=== PATIENT | male | born 1950 | race Caucasian/White ===

== ENCOUNTER 2019-06-22 18:20 | Inpatient (IN) | payer MEDICARE, OTHER ==
[~2019-06-22] VITALS: Ht 175.3 cm; Wt 77.1 kg
--- OUTSIDE RECORDS SUMMARY | 2019-06-22 18:21 | XMS REPORT | Summary of Care ---
Author Author [facility] Organization [facility] Address Unknown Phone Unavailable Encounter HQ Ambrosentr_renetta(FIN) [id number] Date(s): 06/20/19 - 06/20/19 [facility] Outpatient Imaging - [place] [address] [facility] [address] [place], [place] [address] [phone] Discharge Disposition: Home or Self Care Attending Physician: Josse Sigala MD Referring Physician: Josse Sigala MD Vital Signs No data available for this section Problem List No data available for this section Allergies, Adverse Reactions, Alerts No Known Medication Allergies Medications No data available for this section Results No data available for this section Immunizations No data available for this section Procedures No data available for this section Social History Social History Type Response Assessment and Plan No data available for this section
--- OUTSIDE RECORDS SUMMARY | 2019-06-22 18:21 | XMS REPORT | Continuity of Care Document ---
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 Role Phone [employer] Unavailable Un available Problems Problem Status Onset Date Classification Date Reported Comments Source F17.200 - NICOTINE DEPENDENCE, UNSPECIFI Active 07/09/2018 [facility] Medications No Data Provided for This Section Allergies, Adverse Reactions, Alerts Substance Category Reaction Severity Reaction type Status Date Reported Comments Source No Known Medication Allergies Assertion Drug aller gy [facility] [place] Immunizations No Data Provided for This Section Results No Data Provided for This Section Pathology Reports No Data Provided for This Section Diagnostic Reports Report Value Date Source Abdomen complete US EXAM: US A BDOMEN COMPLETE DATE: 06/20/2019 14:47 CDT INDICATION: - Nausea. Elevated liver function tests. No complaints of abdominal pain. ADDITIONAL INFORMATION: None. COMPARISON: 07/13/2005. TECHNIQUE: Multiplanar grayscale and color Doppler ultrasound images of the abdomen. FINDINGS: Liver: Craniocaudal length: 17.0 cm. Borderline enlarged. Echogenicity: Normal. Surface nodularity: None Mass (size and location): None. Portal vein: 11 mm with hepatopetal flow. Bile ducts: Common bile duct diameter: 11 mm in maximal diameter along its visualized course with no constricting or obstructing lesion detected. The duct can be followed to the level of the superior pancreatic head isn't obscured. Intrahepatic ducts: Intrahepatic biliary ductal dilatation is seen, especially in the left hepatic lobe, moderate in degree. Gallbladder: Gallstones: None. Gallbladder sludge: Moderate to large amount of hypoechoic sludge is seen within the gallbladder lumen. Gallbladder wall: 2.3 mm. Normal. Pericholecystic fluid: None. Sonographic Rangel sign: Absent. Pancreas: No abnormalities of the visualized portions of the pancreas are demonstrated. Portions of the pancreas, including portions of the pancreatic head, are obscured by overlying bowel gas. Spleen: Craniocaudal length: 10.8 cm. Normal. Mass or focal lesion (size and location): None. Right kidney: Size: 11.3 x 4.8 x 5.9 cm. Normal. Hydronephrosis: None. Echogenicity: Normal. Mass/Stone/Cyst (size and location): A simple anechoic 1.5 x 2.2 x 1.8 cm avascular cyst is seen in the peripelvic region of the mid medial right kidney. A second adjacent simple peripelvic cyst is present measuring 0.9 x 1.4 x 1.3 seen Left kidney: Size: 10.9 x 3.7 x 5.2 cm. Normal. Hydronephrosis: None. Echogenicity: Normal. Mass/Stone/Cyst (size and location): A simple anechoic avascular thin-walled peripelvic cyst is seen in the left mid kidney measuring 1.7 x 2.3 x 1.8 cm. Abdominal aorta and IVC: Visualized portions are normal. Ascites: None Pleural Effusions: None IMPRESSION: 1. Dilated common bile duct along with i ntrahepatic biliary ductal dilatation, especially in the left hepatic lobe, concerning for constricting or obstructing process in the nonvisualized portion of the distal common bile duct. MRI of the abdomen with and without contrast along with MRCP should be considered for further evaluation. 2. Echogenic sludge versus sludge ball w ithin the gallbladder lumen. No cholelithiasis is seen. 3. Borderline hepatomegaly with mild dif fuse increased echogenicity, nonspecific findings most commonly caused by fatty infiltration (steatosis) of the liver. This finding has improved from the prior ultrasound exam. 4. Simple bilateral peripelvic renal cys ts. Findings were discussed with Dr. Ryan by telephone on 06/20/2019 at 1555 hours. 06/20/2019 [facility] Abdomen AP DX Exam: Abdominal x-ray, 1 view(s) Reason for Exam: - abdominal pain Comparison Exam: Ultrasound 07/13/2005 Discussion: No dilated loops of bowel or abnormal air-fluid level patterns. Moderate amount of scattered stool seen within the large bowel. No suspicious calcifications seen overlying the kidneys or expected course of the ureters. The right hemidiaphragm is elevated in comparison to the left. This is a nonspecific finding. Surgical changes seen within the lumbar spine. Impression: 1. Nonobstructive bowel gas pattern. 09/11/2018 [facility] [place] Ext Lower Venous Doppler Bilat US EXAM: US BILATERAL LOWER EXTREMITY VENOUS DOPPLER DATE: 07/19/2018 13:54 CDT INDICATION: - R60.9 Edema, unspecified ADDITIONAL INFORMATION: None. COMPARISON: None. TECHNIQUE: Multiplanar grayscale, color Doppler and spectral Doppler ultrasound images of the bilateral lower extremity veins. FINDINGS: Right Thigh Veins: Common Femoral: Patent. Femoral (SFV): Patent. Popliteal: Patent. Proximal Greater Saphenous: Patent. Deep Femoral Veins: Patent. Right Calf Veins: Paired Peroneal: Patent. Posterior Tibial Calf: Patent. Left Thigh Veins: Common Femoral: Patent. Femoral (SFV): Patent. Popliteal: Patent. Proximal Greater Saphenous: Patent. Deep Femoral Veins: Patent. Left Calf Veins: Paired Peroneal: Patent. Posterior Tibial Calf: Patent. Reflux is noted in the left mid superficial femoral vein. Venous reflux is also noted in the right common femoral and proximal superficial femoral veins. IMPRESSION: 1. No sonographic evidence of lower extr emity DVT. 2. Bilateral venous insufficiency is dem onstrated by reflux. 07/19/2018 [facility] Chest 2 views DX EXAM: XR CHES T 2 VIEWS DATE: 07/12/2018 8:06 CDT INDICATION: - COPD COMPARISON: Two-view chest x-ray July 28, 2006 TECHNIQUE: PA and lateral chest radiographs FINDINGS: Lines, tubes and hardware: None. Lungs and pleura: No pulmonary or pleural based abnormality is identified. Pulmonary vascularity is normal. Heart and mediastinum: The heart size is normal for technique. The mediastinal contours are normal. Bones: No acute bony abnormality is identified. IMPRESSION: No acute cardiopulmonary abnormality. 07/12/2018 [facility] CT Low Dose Lung Screening Juan Jose dy: CT Low Dose Lung Screening Age: 68 years y/o Male Clinical Indication: F17.210 Nicotine dependence, cigarettes, uncomplicated - Hx of smoking one pack per day for 51 years. Comparison: None HISTORY: Asymptomatic patient meeting NCCN high-risk criteria for lung screening. Patient is currently a smoker. There is a 51 pack-year history of smoking. Exam: Baseline. TECHNIQUE: Noncontrast, volumetric low-dose CT Chest. kVp = 120 mA = 80; CT Dlvol = 2.72 mGy FINDINGS: LUNG NODULES: Detail below:. 1. Right lung, 3 mm solid-- new; sli ce 24 2. R lung, 2 mm solid-- new; slice 4 9 3. R lung, 2 mm solid-- new; slice 5 3 4. R lung, 3 mm solid-- new; slice 1 42 5. Left lung, 2 mm solid-- new; slic e 145 Other Lung Disease: No pleural effusions or pneumothorax. Minimal biapical opacities, likely scarring. Minimal paraseptal emphysema seen in the left apex. Minimal subsegmental atelectasis in the right lower lobe. Aorta: No aneurysm. Mild atherosclerotic changes in the thoracic aorta. Heart / Pericardium: Normal size. No effusions. Within normal limits. Coronary Ca++ / Atherosclerosis: Mild atherosclerosis. Adenopathy: No enlarged intrathoracic lymph nodes are noted. Base of Neck: Very limited evaluation due to postsurgical changes in the cervical spine. Upper Abdomen: No significant findings. OTHER INCIDENTALS: Degenerative changes in the thoracic spine. LUNG-RADS CATEGORY AND IMPRESSION: Lung-Rads Category: Category 2: Negative, benign findings with no evidence of malignancy. Suggest next LDCT in 12 months if age still less than 77 years. Category C -- History of lung cancer: None. Category S -- Other findings requiring urgent evaluation: None. Thank you for choosing the [facility] Lung Screening Program. 07/12/2018 [facility] Consultation Notes No Data Provided for This Section Discharge Summaries No Data Provided for This Section History and Physicals No Data Provided for This Section Vital Signs No Data Provided for This Section Encounters Location Location Details Encounter Type Encounter Number Reason For Visit Attending Provider ADM Date DC Date Status Source [facility] [place] [facility] [id number] 00 Josse Ryan Jr 07/12/2018 07/13/2018 [facility] [place] [facility] [place] [facility] [id number] 01 Josse Ryan Jr 07/19/2018 07/20/2018 [facility] [place] [facility] Out[facility] - [place] [facility] [id number] 02 Josse Ryan Jr 09/11/2018 09/12/2018 [facility] [place] [facility] - [place] [facility] [id number] 04 Josse Ryan Jr 06/20/2019 06/21/2019 [facility] [place] Procedures No Data Provided for This Section Assessment and Plan No Data Provided for This Section Plan of Care No Data Provided for This Section Social History Social History Date Source Social History TypeResponse 06/21/2019 ANGELA Holly No data available for this section 09/12/2018 ANGELA Box Family History No Data Provided for This Section Advance Directives No Data Provided for This Section Functional Status No Data Provided for This Section
--- OUTSIDE RECORDS SUMMARY | 2019-06-22 18:22 | XMS REPORT | Summary of Care ---
Author Author [facility] - [facility] Organization [facility] - [facility] Address Unknown Phone Unavailable Encounter HQ Encntr_alias(FIN) [id number] Date(s): 09/11/18 - 09/11/18 [facility] Outpatient Imaging - [place] [address] [place] [phone] Discharge Disposition: Home or Self Care Attending [...] data available for this section Social History No data available for this section Assessment and Plan No data available for this section
--- OUTSIDE RECORDS SUMMARY | 2019-06-22 18:22 | XMS REPORT | Summary of Care ---
Author Author [facility] Outpatient Imaging - [facility] Organization [facility] Outpatient [facility] - [facility] Address Unknown Phone Unavailable Encounter HQ Ambrosentr_renetta(FIN) [id number] Date(s): 07/19/18 - 07/19/18 [facility] Outpatient Imaging - [place] [address] [address] [facility], [address] [place] [phone] Discharge Disposition: Home or Self Care Attending [...]
--- OUTSIDE RECORDS SUMMARY | 2019-06-22 18:22 | XMS REPORT ---
Author Author [facility] t Organization [facility] Address [address] [place] [address] Phone Unavailable Care Team Providers Care Dog Day Care Attendant Name Role Phone Ricardo Ryan Jr Attphys Esteban Souza Attphys Unavailable Payers Payer Name Policy Type Policy Number Effective Date Expiration Date S ource Problems This patient has no known problems. Allergies, Adverse Reactions, Alerts Allergy Name Allergy Type Status Severity Reaction(s) Onset Date Inacti ve Date Treating Clinician Comments Source No Known Allergies DA Active U 2018-08-28 00:00:00 [facility] No Known Allergies DA Active U 2018-04-26 00:00:00 [facility] No Known Allergies DA Active U 2017-01-03 00:00:[address] [facility] Medications This patient has no known medications. Procedures This patient has no known procedures. Encounters Start Date/Time End Date/Time Encounter Type Admission Type Attendi [facility] Care Department Encounter ID Source 2019-06-20 14:49:00 2019-06-20 23:59:00 Outpatient Josse Pool MHOIB [id number] [facility] Out patient Imaging - [place] 2018-09-11 10:07:00 2018-09-11 23:59:00 Outpatient Josse PoolIP HOIP [id number] [facility] Out patient Imaging - [place] 2018-07-19 13:46:00 2018-07-19 23:59:00 Outpatient Josse Pool OIB [id number] [facility] Out patient Imaging [facility] 2018-07-12 07:29:00 2018-07-12 23:59:00 Outpatient Josse Pool MHOIB OIB [id number] [facility] Out patient Imaging [facility] Results Test Description Test Time Test Comments Results Result Comments Source HGB HCT 2018-08-31 06:50:00 Test Item HEMOGLOBIN (test code = HGB) 11.8 g/dL 12-16 L HEMATOCRIT (test code = HCT) 37.0 % 37-47 N HGB [id number] 05:46:00* Test Item Value Reference Range Interpretation Comments HEMOGLOBIN (test code = HGB) 11.3 g/dL 12-16 L HEMATOCRIT (test code = HCT) 36.2 % 37-47 L - XR SPINE 1 V SPEC [id number] 10:05:00 Patient Name: RIGO MICHELE JR Unit No: [id number] EXAMS: CPT CODE: [id number] XR SPINE 1 V SPEC LEVEL 48024 3 LATERAL INTRAOPERATIVE VIEWS OF THE LUMBAR SPINE Image 1: Surgical markers are at the L1-L2 and S2 levels. The L3-L4 interbody graft is mild position. Image 2: Surgical instrumentation is centered at the L3 level. L2-L4 posterior fusion construct has been removed. Image 3: L2-L4 posterior instrumented fusion is in place with intact hardware. Interbody grafts are well- positioned on lateral view. at 1005 Reported and signed by: Oleg Paredes M.D. CC: Trung Chino M.D. Technologist: MEE DAVID. RT(R) Transcribed D/ (1005) [email or web address] [facility] NAME: RIGO MICHELE JR [address] [facility] [address] PHYS: Trung Ojeda MD : 1950 AGE: 68 SEX: [place], [place] [address] LOC: Y.507 A PHONE #: [phone] EXAM DATE: 08/28/2018 STATUS: ADM IN FAX #: RAD #: D/C DT PAGE 1 Signed Report Patient Name: RIGO MICHELE JR Unit No: [id number] EXAMS: CPT CODE: [id number] XR SPINE 1 V SPEC LEVEL 75315 <Continued> Orig Print D/T: S: 08/29/2018 (1008) [facility] NAME: RIGO MICHELE JR [address] [facility] [address] PHYS: Trung Ojeda MD : 1950 AGE: 68 SEX: M [place], [place] [address] LOC: Y.507 A PHONE #: [phone] EXAM DATE: 08/28/2018 STATUS: ADM IN FAX #: [phone] RAD #: D/C DT PAGE 2 Signed Report - XR SPINE 1 V SPEC [id number] 10:05:00 Patient Name: RIGO MICHELE JR Unit No: [id number] EXAMS: CPT CODE: [id number] XR SPINE 1 V SPEC LEVEL 31516 3 LATERAL INTRAOPERATIVE VIEWS OF THE LUMBAR SPINE Image 1: Surgical markers are at the L1-L2 and S2 levels. The L3-L4 interbody graft is mild position. Image 2: Surgical instrumentation is centered at the L3 level. L2-L4 posterior fusion construct has been removed. Image 3: L2-L4 posterior instrumented fusion is in place with intact hardware. Interbody grafts are well- positioned on lateral view. at 1005 Reported and signed by: Oleg Paredes M.D. CC: Trung Chino M.D. Technologist: MEE DAVID. RT(R) Transcribed D/ (1005) Olegario [facility] NAME: RIGO MICHELE JR [address] [facility] [address] PHYS: Trung Ojeda MD : 1950 AGE: 68 SEX: [place], [place] [address] LOC: Y.507 A PHONE #: [phone] EXAM DATE: 08/28/2018 STATUS: ADM IN FAX #: RAD #: D/C DT PAGE 1 Signed Report Patient Name: RIGO MICHELE JR Unit No: [id number] EXAMS: CPT CODE: [id number] XR SPINE 1 V SPEC LEVEL 75114 <Continued> Orig Print D/T: S: 08/29/2018 (1008) [facility] NAME: RIGO MICHELE JR [address] [facility] [address] PHYS: Trung Ojeda MD : 1950 AGE: 68 SEX: [place], [place] [address] LOC: Y.507 A PHONE #: [phone] EXAM DATE: 08/28/2018 STATUS: ADM IN FAX #: [phone] RAD #: D/C DT PAGE 2 Signed Report - XR SPINE 1 V SPEC [id number] 10:05:00 Patient Name: RIGO MICHELE JR Unit No: [id number] EXAMS: CPT CODE: [id number] XR SPINE 1 V SPEC LEVEL 30617 3 LATERAL INTRAOPERATIVE VIEWS OF THE LUMBAR SPINE Image 1: Surgical markers are at the L1-L2 and S2 levels. The L3-L4 interbody graft is mild position. Image 2: Surgical instrumentation is centered at the L3 level. L2-L4 posterior fusion construct has been removed. Image 3: L2-L4 posterior instrumented fusion is in place with intact hardware. Interbody grafts are well- positioned on lateral view. at 1005 Reported and signed by: Oleg Paredes M.D. CC: Trung Chino M.D. Technologist: JUSTIN VILLAR RT(R) Transcribed D/ (1005) Olegario [facility] NAME: RIGO MICHELE JR [address] [facility] [address] PHYS: Trung Ojeda MD : 1950 AGE: 68 SEX: [place], [place] [address] LOC: Y.507 A PHONE #: [phone] EXAM DATE: 08/28/2018 STATUS: ADM IN FAX #: [phone] RAD #: D/C DT PAGE 1 Signed Report Patient Name: RIGO MICHELE JR Unit No: [id number] EXAMS: CPT CODE: [id number] XR SPINE 1 V SPEC LEVEL 65614 <Continued> Orig Print D/T: S: 08/29/2018 (1008) [facility] NAME: RIGO MICHELE JR [address] [facility] [address] PHYS: Trung Ojeda MD : 1950 AGE: 68 SEX: [place], [place] [address] LOC: Y.507 A PHONE #: [phone] EXAM DATE: 08/28/2018 STATUS: ADM IN FAX #: [phone] RAD #: D/C DT PAGE 2 Signed Report [id number] 09:23:00* Test Item Value Reference Range Interpretation Comments GLUBED (test code = GLUBED) 169 mg/dL 60-125 H BASIC METABOLIC [id number] 06:28:00* Test Item Value Reference Range Interpretation Comments SODIUM (test code = NA) 139 mmol/L 136-145 N POTASSIUM (test code = K) 4.6 mmol/L 3.5-5.1 N CHLORIDE (test code = CL) 103.0 mmol/L 98-107 N CARBON DIOXIDE (test code = CO2) 26.3 mmol/L 21-32 N GLUCOSE (test code = GLU) 149 mg/dL 70-110 H BLOOD UREA NITROGEN (test code = BUN) 16 mg/dL 7-18 N GLOMERULAR FILTRATION RATE (test code = GFR) 77.2 >60 Unit of measure: mL/min/1.73 d6Ccieropqu Range:Healthy Adults >90 mL/min/1.73 m2 For Chronic Kidney Disease: Stage II Mild Decrease in GFR 60-90 Stage III Moderate Decrease in GFR 30-59 Stage IV Severe Decrease in GFR 15-29 Stage V Kidney Failure <15 CREATININE (test code = CREAT) 0.97 mg/dL 0.55-1.30 N CALCIUM (test code = CA) 7.8 mg/dL 8.2-10.1 L HGB [id number] 05:56:00* Test Item Value Reference Range Interpretation Comments HEMOGLOBIN (test code = HGB) 10.6 g/dL 12-16 L HEMATOCRIT (test code = HCT) 32.8 % 37-47 L PROTHROMBIN [id number] 11:53:00* Test Item Value Reference Range Interpretation Comments PROTHROMBIN TIME PATIENT (test code = PTP) 13.5 secs 10.1-12.5 H INTERNATIONAL NORMAL RATIO (test code = INR) 1.19 <2.0 RECOMMENDED THERAPEUTIC RANGE FOR ORAL ANTICOAGULANTTREATMENT: CONDITION INRProphylaxis of venous thrombosis in 2.0 - 3.0 high-risk medical or surgical patientsTreatment of venous thrombosis 2.0 - 3.0Prevention of embolism 2.0 - 3.0Prevention of recurrent embolism, or 3.0 - 4.5 patients with mechanical prosthetic intravascular valves IS PATIENT ON ANTICOAGULANTS ? YLIST ANTICOAGULANT/ANTI PLT MEDICATION : Aspirin Has Lab been notified if Patient is on Heparin Drip? NOTHROMBOPLASTIN TIME [id number] 11:53:00* Test Item Value Reference Range Interpretation Comments PTT ACTIVATED (test code = APTT) 33.2 secs 24.9-37.0 N IS PATIENT ON ANTICOAGULANTS ? YLIST ANTICOAGULANT/ANTI PLT MEDICATION : Aspirin Has Lab been notified if Patient is on Heparin Drip? NOBASIC METABOLIC PANEL 2018-08-19 11:12:00* Test Item Value Reference Range Interpretation Comments SODIUM (test code = NA) 139 mmol/L 136-145 N POTASSIUM (test code = K) 4.1 mmol/L 3.5-5.1 N CHLORIDE (test code = CL) 103.0 mmol/L 98-107 N CARBON DIOXIDE (test code = CO2) 29.5 mmol/L 21-32 N GLUCOSE (test code = GLU) 88 mg/dL 70-110 N BLOOD UREA NITROGEN (test code = BUN) 11 mg/dL 7-18 N GLOMERULAR FILTRATION RATE (test code = GFR) 73.7 >60 Unit of measure: mL/min/1.73 a6Cbqzidpup Range:Healthy Adults >90 mL/min/1.73 m2 For Chronic Kidney Disease: Stage II Mild Decrease in GFR 60-90 Stage III Moderate Decrease in GFR 30-59 Stage IV Severe Decrease in GFR 15-29 Stage V Kidney Failure <15 CREATININE (test code = CREAT) 1.01 mg/dL 0.55-1.30 N CALCIUM (test code = CA) 8.9 mg/dL 8.2-10.1 N CBC W/AUTO [id number] 10:10:00* Test Item Value Reference Range Interpretation Comments WHITE BLOOD CELL (test code = WBC) 11.1 K/mm3 5.7-10.5 H RED BLOOD CELL (test code = RBC) 4.75 M/mm3 4.2-5.4 N HEMOGLOBIN (test code = HGB) 13.8 g/dL 12-16 N HEMATOCRIT (test code = HCT) 42.7 % 37-47 N MEAN CELL VOLUME (test code = MCV) 90 fL 80-98 N MEAN CELL HGB (test code = MCH) 29.1 pg 27-34 N MEAN CELL HGB CONCENTRATION (test code = MCHC) 32.3 g/dL 30.8-34 .1 N RED CELL DISTRIBUTION WIDTH (test code = RDW) 14.1 % 11-16 N PLT (test code = PLT) 264 K/mm3 130-400 N MEAN PLATELET VOLUME (test code = MPV) 11.8 fL 8.9-12.1 N NEUTROPHIL % (test code = NT%) 74.1 % 45-70 H LYMPHOCYTE % (test code = LY%) 15.4 % 20-40 L MONOCYTE % (test code = MO%) 7.4 % 3-10 N EOSINOPHIL % (test code = EO%) 2.2 % 1-5 N BASOPHIL % (test code = BA%) 0.5 % 0.0-1.1 N NEUTROPHIL # (test code = NT#) 8.20 K/mm3 2.00-7.50 H LYMPHOCYTE # (test code = LY#) 1.70 K/mm3 1.50-4.00 N MONOCYTE # (test code = MO#) 0.82 K/mm3 0.2-0.8 H EOSINOPHIL # (test code = EO#) 0.24 K/mm3 0.04-0.4 N BASOPHIL # (test code = BA#) 0.06 K/mm3 0.02-0.10 N MANUAL DIFF REQUIRED (test code = MDIFF) NO MANUAL DIFF NUCLEATED RED BLOOD CELL (test code = NRBC) 0 % 0-0 N - CT L-SPINE W/O [id number] 08:27:00 Patient Name: RIGO MICHELE JR Unit No: [id number] EXAMS: CPT CODE: [id number] CT L-SPINE W/O CONTRAST 32020 TECHNIQUE: Multiplanar CT images were obtained of the lumbar spine without IV contrast. COMPARISON: MRI dated 05/21/2018. INDICATION: PAIN FINDINGS: Interval postoperative changes of L2-L4 posterior instrumented fusion is demonstrated. The interbody graft at L3-L4 has been extruded along the right lateral recess into the laminectomy site. Approximately 25% of the interbody graft remains at the L3-L4 disc space. Subcutaneous fluid is seen posterior to the surgical site extending from L2 to L5. Alignment: Grade 1 spondylolisthesis of L4-L5. Bone Lesion: No suspicious osseous lesion. Fracture: None present. Paraspinal Soft Tissues: The L3-L4 interbody graft is extruded, as described above. L1/2: Minimal bulge. Mild bilateral facet hypertrophy and ligamentum flavum thickening. There is mild central canal stenosis without significant foraminal narrowing. L2/3: Discectomy and interbody graft. Laminectomy changes are noted with decompression of the central canal. The interbody graft is well-posit ioned. Mild bilateral foraminal stenosis is present. L3/4: Discec shruthi and interbody graft with laminectomy defects. The interbody graft is extruded into the right lateral recess and right laminectomy defect. The g raft extrusion results in right lateral recess stenosis and moderate right foraminal stenosis. There is also mild left foraminal narrowing. L4/5: Grade 1 spondylolisthesis. Partial interbody fusion is present on the right. Laminectomy changes are present with decompression of the central canal. There is left lateral recess stenosis as well as mild left, marked right foraminal stenosis. L5/S1: No significant disc bulge or herniation. Mild bilateral facet hypertrophy. No significant foraminal or central canal stenosis. IMPRESSION: Pos toperative changes of L2-L4 posterior decompression and fusion with extr usion of the right L3-L4 interbody graft posteriorly, described above. [facility] NAME: RIGO MICHELE JR [address] [facility] [address] PHYS: Trung Ojeda MD : 1950 AGE: 68 SEX: [place], [place] [address] LOC: .RAD PHONE #: EXAM DATE: 08/05/2018 STATUS: DEP CLI FAX #: [phone] RAD #: D/C DT PAGE 1 Signed Report (CONTINUED) Patient Name: CLIVE MICHELE JR Unit No: [id number] EXAMS: CPT CODE: [id number] CT L-SPINE W/O CONTRAST 95715 <Continued> at 0827 Reported and signed by: Oleg Paredes M.D. CC: Trung Chino M.D. Technologist: Liset Bravo RT(R),(CT),RVT CTDI: DLP: Trnscrpt: 08/09/2018 (826) tSPENCER [facility] NAME: RIGO MICHELE JR [address] [facility] [address] PHYS: Trung Ojeda MD : 1950 AGE: 68 SEX: M [place] [address] LOC: Y.RAD PHONE #: [phone] EXAM DATE: 08/05/2018 STATUS: DEP CLI FAX #: [phone] RAD #: D/C DT PAGE 2 Signed Report Patient Name: RIGO MICHELE JR Unit No: [id number] EXAMS: CPT CODE: [id number] CT L-SPINE W/O CONTRAST 65259 <Continued> Orig Print D/T: S: 08/09/2018 (0831) [facility] NAME: RIGO MICHELE JR [address] [facility] [address] PHYS: Trung Ojeda MD : 1950 AGE: 68 SEX: [place], [place] [address] LOC: Y.RAD PHONE #: [phone] EXAM DATE: 08/05/2018 STATUS: DEP CLI FAX #: [phone] RAD #: D/C DT PAGE 3 Signed Report - MRI L-SPINE W/O [id number] 08:24:00 Patient Name: RIGO MICHELE JR Unit No: [id number] EXAMS: CPT CODE: [id number] MRI L-SPINE W/O CONT 27027 TECHNIQUE: Multiplanar, multisequence MRI examination performed of the lumbar spine without intravenous contrast material. COMPARISON: MR dated 05/21/2018 FINDINGS: Interval postoperative changes of L2-L4 posterior instrumented fusion is demonstrated. The interbody graft at L3-L4 has been extruded along the right lateral recess into the laminectomy site, better visualized on concurrent CT. Subcutaneous fluid is seen posterior to the surgical site extending from L2 to L5. Alignment: Grade 1 spondylolisthesis of L4-L5. Bone Lesion: No suspicious osseous lesion. Fracture: None present. Paraspinal Soft Tissues: The L3-L4 interbody graft is extruded, as described above. Conus Medullaris: Termination at T12/L1 level. Morphology is normal. L1/2: Disc desiccation with minimal bulge. Mild bilateral facet hypertrophy and ligamentum flavum thickening. There is mild central canal stenosis without significant foraminal narrowing. L2/3: Discectomy and interbody graft. Laminectomy changes are noted with decompression of the central canal. The interbody graft is well-positioned. Mild bilateral foraminal stenosis is present. L3/4: Discectomy and interbody graft with laminectomy defects. The interbody graft is extruded into the right lateral recess and right laminectomy defect. The graft extrusion results in right lateral recess stenosis and moderate right foraminal stenosis. There is also mild left foraminal narrowing. L4/5: Grade 1 spondylolisthesis. Partial interbody fusion is present on the right. Laminectomy changes are noted with decompression of the central canal. There is left lateral recess stenosis as well as mild left, marked right foraminal stenosis. L5/S1: No significant disc bulge or herniation. Mild bilateral facet hypertrophy. No significant foraminal or central canal stenosis. IMPRESSION: Postoperative changes of L2-L4 posterior decompression and fusion with extrusion of the right L3-L4 interbody graft posteriorly, described above. [facility] NAME: RIGO MICHELE JR [address] [facility] [address] PHYS: Trung Ojeda MD : 1950 AGE: 68 SEX: [place], [place] [address] LOC: Y.MRI PHONE #: [phone] EXAM DATE: 08/07/2018 STATUS: DEP CLI FAX #: [phone] RAD #: D/C DT PAGE 1 Signed Report (CONTINUED) Patient Name: RIGO MICHELE JR Unit No: [id number] EXAMS: CPT CODE: [id number] MRI L-SPINE W/O CONT 74182 <Continued> at 0824 Reported and signed by: Oleg Paredes M.D. CC: Trung Chino M.D. Technologist: EMANUEL CLARKE. RT(R) Transcribed D/ (823) Olegario [facility] NAME: RIGO MICHELE JR [address] [facility] [address] PHYS: Trung Ojeda MD : 1950 AGE: 68 SEX: [place] [address] LOC: Y.MRI PHONE #: [phone] EXAM DATE: 08/07/2018 STATUS: DEP CLI FAX #: [phone] RAD #: D/C DT PAGE 2 Signed Report Patient Name: RIGO MICHELE JR Unit No: [id number] EXAMS: CPT CODE: [id number] MRI L-SPINE W/O CONT 21243 <Continued> Orig Print D/T: S: 08/09/2018 (827) [facility] NAME: RIGO MICHELE JR [address] [facility] [address] PHYS: Trung Ojeda MD : 1950 AGE: 68 SEX: [place] [address] LOC: Y.MRI PHONE #: [phone] EXAM DATE: 08/07/2018 STATUS: DEP CLI FAX #: [phone] RAD #: D/C DT PAGE 3 Signed Report HGB [id number] 06:26:00* Test Item Value Reference Range Interpretation Comments HEMOGLOBIN (test code = HGB) 10.4 g/dL 12-16 L HEMATOCRIT (test code = HCT) 31.7 % 37-47 L HGB [id number] 05:46:00* Test Item Value Reference Range Interpretation Comments HEMOGLOBIN (test code = HGB) 10.8 g/dL 12-16 L HEMATOCRIT (test code = HCT) 32.7 % 37-47 L BASIC METABOLIC [id number] 06:45:00* Test Item Value Reference Range Interpretation Comments SODIUM (test code = NA) 138 mmol/L 136-145 N POTASSIUM (test code = K) 4.6 mmol/L 3.5-5.1 N CHLORIDE (test code = CL) 104.0 mmol/L 98-107 N CARBON DIOXIDE (test code = CO2) 24.6 mmol/L 21-32 N GLUCOSE (test code = GLU) 179 mg/dL 70-110 H BLOOD UREA NITROGEN (test code = BUN) 20 mg/dL 7-18 H GLOMERULAR FILTRATION RATE (test code = GFR) 58.7 >60 Unit of measure: mL/min/1.73 [id number] Range:Healthy Adults >90 mL/min/1.73 m2 For Chronic Kidney Disease: Stage II Mild Decrease in GFR 60-90 Stage III Moderate Decrease in GFR 30-59 Stage IV Severe Decrease in GFR 15-29 Stage V Kidney Failure <15 CREATININE (test code = CREAT) 1.23 mg/dL 0.55-1.30 N CALCIUM (test code = CA) 7.7 mg/dL 8.2-10.1 L HGB [id number] 05:44:00* Test Item Value Reference Range Interpretation Comments HEMOGLOBIN (test code = HGB) 11.7 g/dL 12-16 L HEMATOCRIT (test code = HCT) 35.1 % 37-47 L - XR SPINE 1 V SPEC [id number] 16:32:00 Patient Name: RIGO MICHELE JR Unit No: [id number] EXAMS: CPT CODE: [id number] XR SPINE 1 V SPEC LEVEL 35765 INTRAOPERATIVE LATERAL LUMBAR SPINE Film 1. Markers are posterior to L1 and the sacrum. Film 2. A surgical instrument is posterior to L2. Film 3. Anterior and posterior fusion has been performed from L2 to L4. at 1632 Reported and signed by: Trung Hartman MD CC: Trung Chino M.D. Technologist: BRICE LOPEZ (RT.R) Transcribed D/ (057) [facility] NAME: RIGO MICHELE JR [address] [facility] [address] PHYS: Trung Ojeda MD : 1950 AGE: 68 SEX: [place], [place] [address] LOC: Y.998 11 PHONE #: [phone] EXAM DATE: 06/19/2018 STATUS: ADM IN FAX #: [phone] RAD #: D/C DT PAGE 1 Signed Report Patient Name: RIGO MICHELE JR Unit No: [id number] EXAMS: CPT CODE: [id number] XR SPINE 1 V SPEC LEVEL 14435 <Continued> Orig Print D/T: S: 06/19/2018 (061) [facility] NAME: Yovani MICHELE JR [address] [facility] [address] PHYS: Trung Garcia MD : 1950 AGE: 68 SEX: [place], [place] [address] LOC: Y. 998 11 PHONE #: [phone] EXAM DATE: 06/19/2018 STATUS: ADM IN FAX #: [phone] RAD #: D/C DT PAGE 2 Signed Report - XR SPINE 1 V SPEC [id number] 16:32:00 Patient Name: RIGO MICHELE JR Unit No: [id number] EXAMS: CPT CODE: [id number] XR SPINE 1 V SPEC LEVEL 41030 INTRAOPERATIVE LATERAL LUMBAR SPINE Film 1. Markers are posterior to L1 and the sacrum. Film 2. A surgical instrument is posterior to L2. Film 3. Anterior and posterior fusion has been performed from L2 to L4. at 1632 Reported and signed by: Trung Hartman MD CC: Trung Chino M.D. Technologist: BRICE LOPEZ (RT.R) Transcribed D/ (748) [facility] NAME: RIGO MICHELE JR [address] [facility] [address] PHYS: Trung Ojeda MD : 1950 AGE: 68 SEX: [place], [place] [address] LOC: Y.998 11 PHONE #: [phone] EXAM DATE: 06/19/2018 STATUS: ADM IN FAX #: [phone] RAD #: D/C DT PAGE 1 Signed Report Patient Name: RIGO MICHELE JR Unit No: [id number] EXAMS: CPT CODE: [id number] XR SPINE 1 V SPEC LEVEL 17221 <Continued> Orig Print D/T: S: 06/19/2018 (7162) [facility] NAME: Yovani MICHELE JR [address] [facility] [address] PHYS: Trung Garcia MD : 1950 AGE: 68 SEX: [place], [place] [address] LOC: Y. 998 11 PHONE #: [phone] EXAM DATE: 06/19/2018 STATUS: ADM IN FAX #: [phone] RAD #: D/C DT PAGE 2 Signed Report - XR SPINE 1 V SPEC [id number] 16:32:00 Patient Name: RIGO MICHELE JR Unit No: [id number] EXAMS: CPT CODE: [id number] XR SPINE 1 V SPEC LEVEL 51377 INTRAOPERATIVE LATERAL LUMBAR SPINE Film 1. Markers are posterior to L1 and the sacrum. Film 2. A surgical instrument is posterior to L2. Film 3. Anterior and posterior fusion has been performed from L2 to L4. at 1632 Reported and signed by: Trung Hartman MD CC: Trung Chino M.D. Technologist: BRICE LOPEZ (RT.R) Transcribed D/ (8902) [facility] NAME: RIGO MICHELE JR [address] [facility] PHYS: Trung Oejda MD : 1950 AGE: 68 SEX: [place], [place] [address] LOC: Y.998 11 PHONE #: [phone] EXAM DATE: 06/19/2018 STATUS: ADM IN FAX #: [phone] RAD #: D/C DT PAGE 1 Signed Report Patient Name: RIGO MICHELE JR Unit No: [id number] EXAMS: CPT CODE: [id number] XR SPINE 1 V SPEC LEVEL 00247 <Continued> Orig Print D/T: S: 06/19/2018 (1635) [facility] NAME: Yovani MICHELE JR [address] [facility] [address] PHYS: Trung Garcia MD : 1950 AGE: 68 SEX: [place], [place] [address] LOC: Y. 998 11 PHONE #: [phone] EXAM DATE: 06/19/2018 STATUS: ADM IN FAX #: [phone] RAD #: D/C DT PAGE 2 Signed Report ACUTE HEPATITIS [id number] 21:14:00* Test Item Value Reference Range Interpretation Comments AB HEPATITIS A IGM (test code = HAVMAB) NONREACTIVE NONREACTIVE AG HEPATITIS B SURFACE (test code = HBSAG) NONREACTIVE NONREACTIVE AB HEPATITIS B CORE IGM (test code = HBCMAB) NONREACTIVE NONREACTI VE AB HEPATITIS C (test code = HCVAB) NONREACTIVE NONREACTIVE SIGNAL TO CUTOFF (test code = CUTOFF) 0.03 <0.80 N AB HIV 1 21:14:00* Test Item Value Reference Range Interpretation Comments AB HIV 1 2 (test code = ZFX14FH) NONREACTIVE NONREACTIVE Done by [employer] 4th Gen HIV Ag/Ab Combo Screen ACUTE HEPATITIS [id number] 21:14:00* Test Item Value Reference Range Interpretation Comments AB HEPATITIS A IGM (test code = HAVMAB) NONREACTIVE NONREACTIVE AG HEPATITIS B SURFACE (test code = HBSAG) NONREACTIVE NONREACTIVE AB HEPATITIS B CORE IGM (test code = HBCMAB) NONREACTIVE NONREACTI VE AB HEPATITIS C (test code = HCVAB) NONREACTIVE NONREACTIVE SIGNAL TO CUTOFF (test code = CUTOFF) 0.03 <0.80 AB HIV 21:14:00* Test Item Value Reference Range Interpretation Comments AB HIV 1 (test code = HIV1AB) NONREACTIVE NONREACTIVE Done by [employer] 4th Gen HIV Ag/Ab Combo Screen ACUTE HEPATITIS [id number] 20:39:00* Test Item Value Reference Range Interpretation Comments AB HEPATITIS A IGM (test code = HAVMAB) NONREACTIVE AG HEPATITIS B SURFACE (test code = HBSAG) NONREACTIVE NONREACTIVE AB HEPATITIS B CORE IGM (test code = HBCMAB) AB HEPATITIS C (test code = HCVAB) NONREACTIVE SIGNAL TO CUTOFF (test code = CUTOFF) AB HIV 20:39:00* Test Item Value Reference Range Interpretation Comments AB HIV 1 (test code = HIV1AB) NONREACTIVE ACUTE HEPATITIS [id number] 20:38:00* Test Item Value Reference Range Interpretation Comments AB HEPATITIS A IGM (test code = HAVMAB) NONREACTIVE AG HEPATITIS B SURFACE (test code = HBSAG) NONREACTIVE NONREACTIVE AB HEPATITIS B CORE IGM (test code = HBCMAB) NONREACTI VE AB HEPATITIS C (test code = HCVAB) NONREACTIVE SIGNAL TO CUTOFF (test code = CUTOFF) <0.80 AB HIV 1 20:38:00* Test Item Value Reference Range Interpretation Comments AB HIV 1 2 (test code = CRA49EN) NONREACTIVE BASIC METABOLIC [id number] 17:36:00* Test Item Value Reference Range Interpretation Comments SODIUM (test code = NA) 143 mmol/L 136-145 N POTASSIUM (test code = K) 4.0 mmol/L 3.5-5.1 N CHLORIDE (test code = CL) 104.0 mmol/L 98-107 N CARBON DIOXIDE (test code = CO2) 30.4 mmol/L 21-32 N GLUCOSE (test code = GLU) 79 mg/dL 70-110 N BLOOD UREA NITROGEN (test code = BUN) 21 mg/dL 7-18 H GLOMERULAR FILTRATION RATE (test code = GFR) 71.2 >60 Unit of measure: mL/min/1.73 [id number] Range:Healthy Adults >90 mL/min/1.73 m2 For Chronic Kidney Disease: Stage II Mild Decrease in GFR 60-90 Stage III Moderate Decrease in GFR 30-59 Stage IV Severe Decrease in GFR 15-29 Stage V Kidney Failure <15 CREATININE (test code = CREAT) 1.04 mg/dL 0.55-1.30 N CALCIUM (test code = CA) 8.8 mg/dL 8.2-10.1 N PROTHROMBIN [id number] 17:36:00* Test Item Value Reference Range Interpretation Comments PROTHROMBIN TIME PATIENT (test code = PTP) 12.4 secs 10.1-12.5 N INTERNATIONAL NORMAL RATIO (test code = INR) 1.10 <2.0 RECOMMENDED THERAPEUTIC RANGE FOR ORAL ANTICOAGULANTTREATMENT: CONDITION INRProphylaxis of venous thrombosis in 2.0 - 3.0 high-risk medical or surgical patientsTreatment of venous thrombosis 2.0 - 3.0Prevention of embolism 2.0 - 3.0Prevention of recurrent embolism, or 3.0 - 4.5 patients with mechanical prosthetic intravascular valves IS PATIENT ON ANTICOAGULANTS ? ILas Lab been notified if Patient is on Heparin D rip? NOIf Yes, order CBC, OCCULT BLOOD, PT every other day NTHROMBOPLASTIN TIME [id number] 17:36:00* Test Item Value Reference Range Interpretation Comments PTT ACTIVATED (test code = APTT) 30.7 secs 24.9-37.0 N IS PATIENT ON ANTICOAGULANTS ? NHas Lab been notified if Patient is on Heparin D rip? NOIf Yes, order CBC, OCCULT BLOOD, PT every other day NCBC W/AUTO DIFF 2018-05-30 16:57:00* Test Item Value Reference Range Interpretation Comments WHITE BLOOD CELL (test code = WBC) 9.7 K/mm3 5.7-10.5 N RED BLOOD CELL (test code = RBC) 5.35 M/mm3 4.2-5.4 N HEMOGLOBIN (test code = HGB) 16.2 g/dL 12-16 H HEMATOCRIT (test code = HCT) 48.5 % 37-47 H MEAN CELL VOLUME (test code = MCV) 91 fL 80-98 N MEAN CELL HGB (test code = MCH) 30.3 pg 27-34 N MEAN CELL HGB CONCENTRATION (test code = MCHC) 33.4 g/dL 30.8-34 .1 N RED CELL DISTRIBUTION WIDTH (test code = RDW) 14.4 % 11-16 N PLT (test code = PLT) 202 K/mm3 130-400 N MEAN PLATELET VOLUME (test code = MPV) 12.3 fL 8.9-12.1 H NEUTROPHIL % (test code = NT%) 72.8 % 45-70 H LYMPHOCYTE % (test code = LY%) 17.4 % 20-40 L MONOCYTE % (test code = MO%) 7.4 % 3-10 N EOSINOPHIL % (test code = EO%) 1.6 % 1-5 N BASOPHIL % (test code = BA%) 0.5 % 0.0-1.1 N NEUTROPHIL # (test code = NT#) 7.03 K/mm3 2.00-7.50 N LYMPHOCYTE # (test code = LY#) 1.68 K/mm3 1.50-4.00 N MONOCYTE # (test code = MO#) 0.71 K/mm3 0.2-0.8 N EOSINOPHIL # (test code = EO#) 0.15 K/mm3 0.04-0.4 N BASOPHIL # (test code = BA#) 0.05 K/mm3 0.02-0.10 N MANUAL DIFF REQUIRED (test code = MDIFF) NO MANUAL DIFF NUCLEATED RED BLOOD CELL (test code = NRBC) 0 % 0-0 N NM BONE SPECT [id number] 14:34:23CLINICAL INDICATION: M47.816 Spondylosis w/o myelopathy or radiculopathy, lumbar region, M96.1 Postlaminectomy syndrome, not elsewhere classifiedMODALITY: Discovery NM/CT 670TECHNIQUE: 25 mCi Tc 99m MDP are injected IV. After a suitable time delay, whole body imaging images were obtained. SPECT imaging of the lumbar spine is performed with computer and physician-assisted 2-D and 3-D reconstruction. Co-registered low dose limited diagnostic CT images are obtained at the level of SPECT imaging.Computed Tomography Dose Index: 5.44 mGy.FINDINGS:COMPARISON: Fusion CT exam.CT Comments: none.Symmetric bilateral renal function is observed.Mild to moderate periodontal uptake is noted within the maxilla.Mild to moderate bilateral acromioclavicular uptake is most conspicuous. Mild to moderate uptake is noted at the left medial wrist, right elbow. Note is made of a left total knee.SPECT CT fusion imaging of the lumbar spine is reviewed. There is moderate uptake present within marginal osteophytes at the right anterior, lateral aspect of the T12-L1 and L1-L2. The L4-5 disc appears partially fused. There is mild L3-4 facet uptake present. Mature dorsal fusion is demonstrated L4-S1.IMPRESSION:See comments above.PQRS 147: 3570F- XR L-SPINE W/BEND [id number] 10:51:00 Patient Name: RIGO MICHELE JR Unit No: [id number] EXAMS: CPT CODE: [id number] XR L-SPINE W/BEND VIEW 99278 MRI OF THE LUMBAR SP INE: DIAGNOSIS: 1. At L1-2, disc desiccation. No ce ntral canal stenosis. Mild to moderate central canal stenosis. Mild bila teral facet arthropathy. Mild foraminal stenosis. 2. At L2- 3, moderate to marked disc degeneration. There is 2 mm retrolisthesis of L2 on L3. 2 mm disc bulge. Marked sogb-zv-lsmt central canal stenosis se condary to thickening of ligamenta flava moderate bilateral facet arthropa thy. There is compression of the thecal sac and contained nerve roots. B ilateral lateral gutter stenosis. Marked bilateral bony foraminal stenosi s. 3. At L3-4, mild disc degeneration. Patient status post pilar ctomy. There is a marked residual central canal stenosis. Moderate to ma rked bilateral facet arthropathy. Moderate to marked bilateral foraminal stenosis. 4. At L4-5, moderate to marked disc degeneration. There is a grade 1 spondylolisthesis of L4 and L5. Patient status post l aminectomy. There is solid fusion of the facet joints. Moderate residual central canal stenosis. Mild to moderate bilateral bony foraminal stenos is. 5. At L5-S1, no disc bulge or herniation. Mild central canal stenosis. Moderate right facet and mild left facet arthropathy. No foraminal stenosis. COMMENT: COMPARISON: No prior e xams available. Sagittal T1, T2 and STIR and axial T1 and T2-weigh farrukh sequences are obtained of the lumbar spine. The lumbar v ertebrae are within normal limits in signal. The findings are as above. The conus is in the expected location. 7 VIEW LUMBAR SPINE WITH FLEXION AND EXTENSION COMMENT: Moderate degeneration of the L4-5 disc with a grade 1 spondylolisthe sis. There is retrolisthesis of L2 on L3. Anterior bridging osteophytes at the L1-2 level. No abnormal motion seen on flexion or extension. Mode rate levoscoliosis. Pedicles and transverse processes are intact. Modera te degeneration the SI joints. Moderate degeneration of the partially vis ualized hip joints. [facility] NAME: CLIVE MICHELE JR [address] PHYS: Ruben Galvan MD : 1950 AGE: 68 SEX: M [place], [place] [address] LOC: Y.MRI PHONE #: [phone] EXAM DATE: 05/21/2018 STATUS: REG CLI FAX #: [phone] RAD #: D/C DT PAGE 1 Signed Report (CONTINUED) Hussein raynt Name: RIGO MICHELE JR Unit No: [id number] EXAMS: CPT CODE: [id number] XR L-SPINE W/BEND VIEW 90891 <Continued> at 1051 Reported and signed by: Quoc Oliveira MD CC: Ruben Ramirez MD Technologist: Bala Cortez(R) Transcribed D/ (1051) MaryjoGVG [facility] NAME: RIGO MICHELE JR [address] PHYS: Ruben Galvan MD : 1950 AGE: 68 SEX: M [place] [address] LOC: Y.MRI PHONE #: [phone] EXAM DATE: 05/21/2018 STATUS: REG CLI FAX #: [phone] RAD #: D/C DT PAGE 2 Signed Report Patient Name: RIGO MICHELE JR Unit No: [id number] EXAMS: CPT CODE: [id number] XR L-SPINE W/BEND VIEW 04247 <Continued> Orig Print D/T: S: 05/21/2018 (1054) [facility] NAME: RIGO MICHELE JR [address] PHYS: Ruben Galvan MD : 1950 AGE: 68 SEX: M [place] [address] LOC: Y.MRI PHONE #: [phone] EXAM DATE: 05/21/2018 STATUS: REG CLI FAX #: [phone] RAD #: D/C DT PAGE 3 Signed Report - MRI L-SPINE W/O [id number] 10:51:00 Patient Name: RIGO MICHELE JR Unit No: [id number] EXAMS: CPT CODE: [id number] MRI L-SPINE W/O CONT 51450 MRI OF THE LUMBAR SPINE: DIAGNOSIS: 1. At L1-2, disc desiccation. No central canal stenosis. Mild to moderate central canal stenosis. Mild bilateral facet arthropathy. Mild foraminal stenosis. 2. At L2-3, moderate to marked disc degeneration. There is 2 mm retrolisthesis of L2 on L3. 2 mm disc bulge. Marked odmu-gc-bvzo central canal stenosis secondary to thickening of ligamenta flava moderate bilateral facet arthropathy. There is compression of the thecal sac and contained nerve roots. Bilateral lateral gutter stenosis. Marked bilateral bony foraminal stenosis. 3. At L3-4, mild disc degeneration. Patient status post laminectomy. There is a marked residual central canal stenosis. Moderate to marked bilateral facet arthropathy. Moderate to marked bilateral foraminal stenosis. 4. At L4-5, moderate to marked disc degeneration. There is a grade 1 spondylolisthesis of L4 and L5. Patient status post l aminectomy. There is solid fusion of the facet joints. Moderate residual central canal stenosis. Mild to moderate bilateral bony foraminal stenos is. 5. At L5-S1, no disc bulge or herniation. Mild central canal stenosis. Moderate right facet and mild left facet arthropathy. No foraminal stenosis. COMMENT: COMPARISON: No prior e xams available. Sagittal T1, T2 and STIR and axial T1 and T2-weigh farrukh sequences are obtained of the lumbar spine. The lumbar v ertebrae are within normal limits in signal. The findings are as above. The conus is in the expected location. 7 VIEW LUMBAR SPINE WITH FLEXION AND EXTENSION COMMENT: Moderate degeneration of the L4-5 disc with a grade 1 spondylolisthe sis. There is retrolisthesis of L2 on L3. Anterior bridging osteophytes at the L1-2 level. No abnormal motion seen on flexion or extension. Mode rate levoscoliosis. Pedicles and transverse processes are intact. Modera te degeneration the SI joints. Moderate degeneration of the partially vis ualized hip joints. [facility] NAME: CLIVE MICHELE JR [address] PHYS: Ruben Galvan MD : 1950 AGE: 68 SEX: M [place], [place] [address] LOC: Y.MRI PHONE #: [phone] EXAM DATE: 05/21/2018 STATUS: REG CLI FAX #: [phone] RAD #: D/C DT PAGE 1 Signed Report (CONTINUED) Hussein raynt Name: RIGO MICHELE JR Unit No: [id number] EXAMS: CPT CODE: [id number] MRI L-SPINE W/O CONT 90422 <Continued> at 1051 Reported and signed by: Quoc Oliveira MD CC: Ruben Ramirez MD Technologist: Bala Cortez(R) Transcribed D/ (1051) MaryjoGVG [facility] NAME: RIGO MICHELE JR [address] PHYS: Ruben Galvan MD : 1950 AGE: 68 SEX: M [place] [address] LOC: Y.MRI PHONE #: [phone] EXAM DATE: 05/21/2018 STATUS: REG CLI FAX #: [phone] RAD #: D/C DT PAGE 2 Signed Report Patient Name: RIGO MICHELE JR Unit No: [id number] EXAMS: CPT CODE: [id number] MRI L-SPINE W/O CONT 46182 <Continued> Orig Print D/T: S: 05/21/2018 (1054) [facility] NAME: RIGO MICHELE JR [address] PHYS: Ruben Galvan MD : 1950 AGE: 68 SEX: M [place] [address] LOC: Y.MRI PHONE #: [phone] EXAM DATE: 05/21/2018 STATUS: REG CLI FAX #: [phone] RAD #: D/C DT PAGE 3 Signed Report - XR FLUORO FOR SPINE [id number] 09:37:00 Patient Name: RIGO MICHELE JR Unit No: [id number] EXAMS: CPT CODE: [id number] XR FLUORO FOR SPINE INJ 53206 LUMBAR FACET AND EPIRADICULAR INJECTIONS REFERRAL PHYSICIAN: None PREOPERATIVE DIAGNOSIS: Lumbar Radiculitis POSTOPERATIVE DIAGNOSIS: Multilevel lumbar disc degeneration with facet arthropathy and left lower extremity radicular pain PROCEDURES PERFORMED: 1. Fluoroscopically guided needle localization of the left L2 and left L3 spinal nerves with transforaminal epidurograms and epidural injection of local anesthetic and steroid. 2. Fluoroscopically guided needle localization of the left L1-2, left L2-3 and left L3-4 facets with arthrograms and diagnostic injection of local anesthetic and steroid. FINDINGS: All facet showed marked capsular degeneration moderate joint space widening at L2-3. Asp iration was negative. Provocation was negative. Anesthetic response was po sitive with the patient noting relief of his back pain. The left L2 and L3 transforaminal epidurogram showed flow through the foramen with obstructi ve proximal flow in the left L2-3 lateral recess. Provocation was negative . Anesthetic response was positive with the patient noting relief of his l eft lower extremity pain. Preinjection VAS 5/10. Postinjection VAS 0/10. Steroid response pending follow-up. ESTIMATED BLOOD LOSS: Minimal ANESTHESIA: TIVA COMPLICATIONS: None DETAILS OF PROCEDURE: After obtaining stable vital signs, inform ed consent and IV access, with no contraindications, the patient was taken to the operating room and placed in a prone position with all extremities padded and appropriate monitors placed. The patient was sterilely prepped and draped over the lumbosacral spine. Using fluoroscopic visualization the insertion sites were marked for a paravertebral approaches and us ing standard technique, a 25 gauge needle was advanced into each facet elia int and a 25 gauge needle was advanced to the base of each pedicle without paresthesias. Aspiration was negative. Isovue-300 contrast 0.2 mL was inj ected incrementally with frequent negative aspirations to produce the arth rograms and epidurograms. There were no signs of intravascular or intrathe wayne uptake. Bupivicaine 0.75% 0.25 mL with lidocaine 4% 0.5 mL and triamc inolone 10 mg was injected at each facet, while bupivicaine 0.75% 0.25 ml with Lidocaine 4% 0.5 ml and Decadron 8 mg was then incrementally inject ed with frequent negative aspirations at each pedicle. Again, there were no signs of intravascular or intrathecal uptake. The patient's vital signs remained stable. The needles were removed and the patient was taken to the PACU in good condition. [facility] NAME: RIGO MICHELE [address] PHYS: Ruben Galvan MD [place] [address] : 1950 AGE: 68 SEX: M LOC: [place] PHONE #: [phone] EXAM DATE : 04/26/2018 STATUS: [facility] FAX #: [phone] RAD #: D/C DT PAGE 1 Signed Report (CONTINUED) Patient Name: RIGO MICHELE JR Unit No: [id number] EXAMS: CPT CODE: [id number] XR FLUORO FOR SPINE INJ 20238 < Continued> at 0937 Reported and signed by: Ruben Ramirez M.D. CC: Ruben Ramirez MD Technologist: FELICITA MELENDEZ(R) Transcribed D/ (0937) [facility]: RIGO MICHELE [address] PHYS: Ruben Galvan MD [place] [address] : 1950 AGE: 68 SEX: M LOC: [place] PHONE #: [phone] EXAM DATE: 04/26/2018 STATUS: [facility] FAX #: [phone] RAD #: D/C DT PAGE 2 Signed Report Patient Name: RIGO MICHELE JR Unit No: [id number] EXAMS: CPT CODE: [id number] XR FLUORO FOR SPINE INJ 04015 <Continued> Orig Print D/T: S: 04/28/2018 (0940) [facility] NAME: RIGO MICHELE JR [address] PHYS: Ruben Galvan MD [place], [place] [address] : 1950 AGE: 68 SEX: M LOC: [place] PHONE #: [phone] EXAM DATE: 04/26/2018 STATUS: [facility] FAX #: [phone] RAD #: D/C DT PAGE 3 Signed Report NM BONE SPECT SCAN CLINICAL INDICATION: dx: m51.36, m51.16, m96.1, lumbarspine abnormality, chron ic lower back and left knee pain, left ankle and left wrist fx beforeMODALITY: Pansieve dual head gamma cameraTECHNIQUE: 25 mCi Tc 99m MDP are injected IV . After a suitable time delay, whole body imaging images were obtained. SPECT im aging of the lumbar spine is performed with computer and physician-assisted 2-D and 3-D reconstruction.FINDINGS:COMPARISON: Lumbar spine performed 12/21/2016. Five lumbar type vertebra are present. Mature dorsal fusion is noted at the L4-5 level. There appears to be bony union at the anterior L4-5 disc level as well. Approximate 4.0 mm retrolisthesis of L2 is noted in the neutral position. This a ppears stable in flexion and extension. Anterior osteophytes are noted at L1-2, L2-3, L3-4. Wide dorsal laminectomy has been accomplished L3-L4.Symmetric bilate ral renal function is observed.Mild to moderate periodontal uptake is present wi thin the maxilla and mandible. Mild to moderate symmetric uptake is seen at the acromioclavicular joints bilaterally, left medial wrist. Mild glenohumeral and s ternoclavicular joint uptake is seen. Mild bilateral hip uptake is present. Note is made of a left total knee.SPECT imaging of the lumbar spine is reviewed. Mild to moderate activity is noted at the L2-3 intervertebral disc left anterior. M ild to moderate localization is seen at the right lateral T11-T12 and T10-T11 i ntervertebral disc margins. Mild to moderate uptake is noted at the left L2-3 fa cet articulation. There is low-level activity corresponding to the fusion mass a t L4-5.IMPRESSION:See comments above.PQRS 147: 3570FMRI LUMBAR WO/WCLINICAL INDICATION: M51.36 Other intervertebral disc degeneration, lumbar usrkiyA55.1 Postlaminectomy syndrome, not elsewhere dywubfxeaiY96.16MODALITY: [employer] [place] 1.2 [place] Open MRI TECHNIQUE: Multiplanar multi sequence MRI examination of the lumbar spine was performed prior to and following intravenous administration of 10 ml gadavist gadolinium contrast.IMPRESSION:1. 2 mm retrolisthesis of L2 on L3 with superimposed 5 mm posterior disc extrusion, ecce ntric to the left, with caudal migration of disc material. Severe central canal stenosis is seen at this level.2. 3.5 mm broad-based posterior protrusion with spondylotic component at the L3-L4 level. Moderate circumferential central canal stenosis is seen at this level.3. Status post laminectomy and posterior osseous fusion at the L4-L5 level. 3 mm spondylolisthesis of L4 on L5 is evident.4. 1 mm broad-based posterior protrusion at the L1-L2 level.5. Multilevel bilateral lumbar neural foraminal stenosis and facet arthrosis, detailed at specific leve ls below.6. Mild lumbar levoscoliosis.FINDINGS:COMPARISON: noneGeneral observ ations: Mild lumbar levoscoliosis is present. Moderate multilevel anterior spond ylosis is present. There is slight retrolisthesis of L2 on L3 and slight spondyl olisthesis of L4 on L5. The L4-L5 laminectomy and posterior fusion is evident. M odic type 1 discogenic signal changes are present at the L2-L3 level. The L2-L5 intervertebral discs are mildly diminished in height and moderately desiccated. Remaining lumbar intervertebral discs are mildly desiccated without loss of heig ht. Conus medullaris terminates at the T12-L1 level.FINDINGS AT SPECIFIC LEVELS: L5-S1: Significant disc bulge or protrusion is not seen. Central canal is patent . Bilateral neural foramina are patent. Mild to moderate bilateral facet arthrop athy is seen.L4-L5: Status post laminectomy and posterior fusion. 3 mm spondylol isthesis of L4 on L5 is evident, without superimposed protrusion. Central canal is patent. Mild bilateral neural foraminal stenosis is evident.L3-L4: 3.5 mm bro ad-based posterior protrusion with spondylotic component moderately effaces the anterior aspect of thecal sac. Moderate to marked bilateral hypertrophic facet a rthrosis is present. Moderate circumferential central canal stenosis is present. The thecal sac measures 7.5 mm in anteroposterior dimension at the midline. Mod erate right and mild left neural foraminal stenosis is evident.L2-L3: 2 mm retro listhesis of L2 on L3 is evident, with superimposed posterior disc extrusion, ec centric to the left, measuring 5 mm in anteroposterior dimension with 8 mm cauda l migration of disc material. This moderately effaces the anterior aspect of the wayne sac. Extruded disc material is present within the left lateral recess contac ting the descending left L3 nerve root. Severe circumferential central canal lilia nosis is present. The thecal sac measures 6 mm in anteroposterior dimension at t he midline. Moderate right and moderate to severe left neural foraminal stenosis is evident. Moderate bilateral facet arthropathy is seen periL1-L2: 1 mm broad- based posterior protrusion is evident. Central canal is patent. Bilateral neural foramina are patent. Mild bilateral facet arthropathy is seen.CR - XRAY SPINE, LUMBOSACRAL: COMPLETE W/BENDING, MIN 6 VIEWSCLINICAL INDICATION: M51.36 Other intervertebral disc degeneration, lumbar regionFINDINGS:COMPARISON: None.Seven views of lumbar spine were obtained.Five ihk-ioc-vemvysy lumbar-type vertebral bodies are evident. Mild lumbar levoscoliosis is present. Moderate multilevel anterior spondylosis is present. Moderate multilevel bilateral lumbar facet arthropathy is seen. Bilateral intertransverse osseous fusion is evident at the L4-L5 level. There is approximately 2-3 mm spondylolisthesis of L4 on L5, and 2 mm retrolisthesis of L2 on L3. No dynamic instability is appreciable on flexion/extension views. IMPRESSION:1. Moderate multilevel lumbar spondylosis and facet arthrosis.2. Status post bilateral osseous intertransverse fusion at the L4-L5 level.3. Slight spondylolisthesis of L4-5 and retrolisthesis of L3 on L4, without dynamic instability on flexion/extension.4. Mild lumbar levoscoliosis.
--- OUTSIDE RECORDS SUMMARY | 2019-06-22 18:22 | XMS REPORT | Summary of Care ---
Author Author [facility] Organization [facility] Address Unknown Phone Unavailable Encounter HQ Zabrina_renetta(FIN) [id number] Date(s): 07/12/18 - 07/12/18 [facility] Outpatient Imaging [facility] [id number] [place] [address], [address] [place] [phone] Discharge Disposition: Home or Self Care Attending [...]
[2019-06-22] MEDS ORDERED: ATORVASTATIN CA20 MG PO (18:28)
[2019-06-22] MEDS ORDERED: ASPIRIN81 MG PO (18:28)
[2019-06-22] MEDS ORDERED: APRISO0.375 GM PO (18:28)
[2019-06-22] MEDS ORDERED: CIPROFLOXACIN500 MG PO (18:28)
[2019-06-22] MEDS ORDERED: ASPIRIN 81 MG CHEW TAB PO ONE (18:30)
--- NOTE | 2019-06-22 18:34 | Emergency Department Note ---
History of Present Illnes History of Present Illness Chief Complaint: Chest Pain History of Present Illness This is a 69 year old male . c/o cp sob on set noon HERE FOR CHEST PAIN SINCE THIS AFTERNOON AROUND 12 WITH SHORTNESS OF BREATH. DENIES HISTORY OF HEART PROBLEMS. ALSO REPORTS NAUSEA. Historian: Patient Arrival Mode: Car Radiation: non-radiation Severity: moderate Onset quality: sudden Duration (how long): hour(s) Timing of current episode: constant Progression: unchanged Context: recent illness, recent surgery, recent immobilization, recent travel, trauma/injury, new medications, hx of DVT/PE, non-compliance w/ medications, other Relieving factors: none Exacerbating factors: none Treatments prior to arrival: aspirin (JOSE AMES NP) Past Medical/Family History Physician Review I have reviewed the patient's past medical and family history. Any updates have been documented here. (JOSE AMES NP) Past Medical History Recent Fever: No Clinical Suspicion of Infectio: No New/Unexplained Change in Ment: No Past Medical History: Hyperlipedemia Other Medical History: CROHNS H PYLORI Past Surgical History: Knee Replacement, Back Surgery, Orthopedic Implants (JOSE AMES NP) Social History Smoking Cessation: Current every day smoker Alcohol Use: None Any Illegal Drug Use: No TB Exposure/Symptoms: No (JOSE AMES NP) Family History Family history of heart diseas: No (JOSE AMES NP) Other Any Pre-Existing Lines (PICC,: No (JOSE AMES NP) Review of Systems Review of Systems Constitutional: no symptoms EENTM: no symptoms Cardiovascular: chest pain Respiratory: other (sob) Gastrointestinal: no symptoms Genitourinary: no symptoms Musculoskeletal: no symptoms Neurological: no symptoms Psychological: no symptoms Endocrine: no symptoms Hematological/Lymphatic: no symptoms Review of other systems All other systems reviewed and negative. (JOSE AMES NP) Physical Exam Related Data Allergies: Coded Allergies: No Known Allergies (Unverified , 06/22/19) Triage Vital Signs Vital Signs Date Time Temp Pulse Resp B/P (MAP) Pulse Ox O2 Delivery O2 Flow Rate FiO2 06/22/19 18:21 98.8 91 16 190/99 98 Vital signs reviewed: Yes (JOSE AMES NP) Physical Exam CONSTITUTIONAL Constitutional: well-developed, well-nourished HENT HENT: normocephalic, atraumatic, oropharynx clear/moist, nose normal EYES Eyes: PERRL, conjunctivae normal, EOM normal NECK Neck: ROM normal PULMONARY Pulmonary: effort normal; breath sounds normal (mildly diminished lower lobes - no cough congestion ) CARDIOVASCULAR Cardiovascular: regular rhythm, heart sounds normal, capillary refill normal, normal rate GASTROINTESTINAL Abdominal: soft, nontender, bowel sounds normal GENITOURINARY Genitourinary: exam deferred SKIN Skin: warm, dry MUSCULOSKELETAL Musculoskeletal: ROM normal NEUROLOGICAL Neurological: alert, oriented x 3, no gross motor or sensory deficits PSYCHOLOGICAL Psychological: mood/affect normal, judgement normal (JOSE AMES NP) Results Laboratory Laboratory Laboratory Tests Test 06/22/19 19:20 06/22/19 18:29 Lactic Acid Level 3.8 mmol/L (0.5-2.0) White Blood Count 14.60 x10e3/uL (4.8-10.8) Red Blood Count 5.20 x10e6/uL (4.3-5.7) Hemoglobin 15.2 g/dL (14.0-18.0) Hematocrit 47.6 % (38.2-49.6) Mean Corpuscular Volume 91.5 fL (81-99) Mean Corpuscular Hemoglobin 29.2 pg (28-32) Mean Corpuscular Hemoglobin Concent 31.9 g/dL (31-35) Red Cell Distribution Width 15.9 % (11.7-14.4) Platelet Count 203 x10e3/uL (140-360) Neutrophils (%) (Auto) 84.3 % (38.7-80.0) Lymphocytes (%) (Auto) 7.8 % (18.0-39.1) Monocytes (%) (Auto) 6.2 % (4.4-11.3) Eosinophils (%) (Auto) 0.9 % (0.0-6.0) Basophils (%) (Auto) 0.4 % (0.0-1.0) Neutrophils # (Auto) 12.3 (2.1-6.9) Lymphocytes # (Auto) 1.1 (1.0-3.2) Monocytes # (Auto) 0.9 (0.2-0.8) Eosinophils # (Auto) 0.1 (0.0-0.4) Basophils # (Auto) 0.1 (0.0-0.1) Absolute Immature Granulocyte (auto 0.06 x10e3/uL (0-0.1) Prothrombin Time 12.6 seconds (11.9-14.5) Prothromb Time International Ratio 0.89 Activated Partial Thromboplast Time 27.6 seconds (23.8-35.5) Sodium Level 140 mmol/L (136-145) Potassium Level 3.1 mmol/L (3.5-5.1) Chloride Level 103 mmol/L (98-107) Carbon Dioxide Level 24 mmol/L (22-29) Anion Gap 16.1 mmol/L (8-16) Blood Urea Nitrogen 14 mg/dL (7-26) Creatinine 0.86 mg/dL (0.72-1.25) Estimat Glomerular Filtration Rate > 60 ML/MIN (60-) BUN/Creatinine Ratio 16 (6-25) Glucose Level 121 mg/dL (74-118) Calcium Level 9.7 mg/dL (8.4-10.2) Total Bilirubin 6.2 mg/dL (0.2-1.2) Aspartate Amino Transf (AST/SGOT) 191 IU/L (5-34) Alanine Aminotransferase (ALT/SGPT) 216 IU/L (0-55) Alkaline Phosphatase 594 IU/L (40-150) Creatine Kinase 52 IU/L (30-200) Creatine Kinase MB 0.60 ng/mL (0-5.0) Troponin I < 0.001 ng/mL (0-0.300) B-Type Natriuretic Peptide 34.1 pg/mL (0-100) Total Protein 7.8 g/dL (6.5-8.1) Albumin 3.4 g/dL (3.5-5.0) Globulin 4.4 g/dL (2.3-3.5) Albumin/Globulin Ratio 0.8 (0.8-2.0) Laboratory Tests Test 06/22/19 18:29 White Blood Count 14.60 x10e3/uL (4.8-10.8) Red Blood Count 5.20 x10e6/uL (4.3-5.7) Hemoglobin 15.2 g/dL (14.0-18.0) Hematocrit 47.6 % (38.2-49.6) Mean Corpuscular Volume 91.5 fL (81-99) Mean Corpuscular Hemoglobin 29.2 pg (28-32) Mean Corpuscular Hemoglobin Concent 31.9 g/dL (31-35) Red Cell Distribution Width 15.9 % (11.7-14.4) Platelet Count 203 x10e3/uL (140-360) Neutrophils (%) (Auto) 84.3 % (38.7-80.0) Lymphocytes (%) (Auto) 7.8 % (18.0-39.1) Monocytes (%) (Auto) 6.2 % (4.4-11.3) Eosinophils (%) (Auto) 0.9 % (0.0-6.0) Basophils (%) (Auto) 0.4 % (0.0-1.0) Neutrophils # (Auto) 12.3 (2.1-6.9) Lymphocytes # (Auto) 1.1 (1.0-3.2) Monocytes # (Auto) 0.9 (0.2-0.8) Eosinophils # (Auto) 0.1 (0.0-0.4) Basophils # (Auto) 0.1 (0.0-0.1) Absolute Immature Granulocyte (auto 0.06 x10e3/uL (0-0.1) Prothrombin Time 12.6 seconds (11.9-14.5) Prothromb Time International Ratio 0.89 Activated Partial Thromboplast Time 27.6 seconds (23.8-35.5) Sodium Level 140 mmol/L (136-145) Potassium Level 3.1 mmol/L (3.5-5.1) Chloride Level 103 mmol/L (98-107) Carbon Dioxide Level 24 mmol/L (22-29) Anion Gap 16.1 mmol/L (8-16) Blood Urea Nitrogen 14 mg/dL (7-26) Creatinine 0.86 mg/dL (0.72-1.25) Estimat Glomerular Filtration Rate > 60 ML/MIN (60-) BUN/Creatinine Ratio 16 (6-25) Glucose Level 121 mg/dL (74-118) Calcium Level 9.7 mg/dL (8.4-10.2) Total Bilirubin 6.2 mg/dL (0.2-1.2) Aspartate Amino Transf (AST/SGOT) 191 IU/L (5-34) Alanine Aminotransferase (ALT/SGPT) 216 IU/L (0-55) Alkaline Phosphatase 594 IU/L (40-150) Creatine Kinase 52 IU/L (30-200) Creatine Kinase MB 0.60 ng/mL (0-5.0) Troponin I < 0.001 ng/mL (0-0.300) B-Type Natriuretic Peptide 34.1 pg/mL (0-100) Total Protein 7.8 g/dL (6.5-8.1) Albumin 3.4 g/dL (3.5-5.0) Globulin 4.4 g/dL (2.3-3.5) Albumin/Globulin Ratio 0.8 (0.8-2.0) Laboratory Tests Test 06/22/19 18:29 White Blood Count 14.60 x10e3/uL (4.8-10.8) Red Blood Count 5.20 x10e6/uL (4.3-5.7) Hemoglobin 15.2 g/dL (14.0-18.0) Hematocrit 47.6 % (38.2-49.6) Mean Corpuscular Volume 91.5 fL (81-99) Mean Corpuscular Hemoglobin 29.2 pg (28-32) Mean Corpuscular Hemoglobin Concent 31.9 g/dL (31-35) Red Cell Distribution Width 15.9 % (11.7-14.4) Platelet Count 203 x10e3/uL (140-360) Neutrophils (%) (Auto) 84.3 % (38.7-80.0) Lymphocytes (%) (Auto) 7.8 % (18.0-39.1) Monocytes (%) (Auto) 6.2 % (4.4-11.3) Eosinophils (%) (Auto) 0.9 % (0.0-6.0) Basophils (%) (Auto) 0.4 % (0.0-1.0) Neutrophils # (Auto) 12.3 (2.1-6.9) Lymphocytes # (Auto) 1.1 (1.0-3.2) Monocytes # (Auto) 0.9 (0.2-0.8) Eosinophils # (Auto) 0.1 (0.0-0.4) Basophils # (Auto) 0.1 (0.0-0.1) Absolute Immature Granulocyte (auto 0.06 x10e3/uL (0-0.1) Prothrombin Time 12.6 seconds (11.9-14.5) Prothromb Time International Ratio 0.89 Activated Partial Thromboplast Time 27.6 seconds (23.8-35.5) Sodium Level 140 mmol/L (136-145) Potassium Level 3.1 mmol/L (3.5-5.1) Chloride Level 103 mmol/L (98-107) Carbon Dioxide Level 24 mmol/L (22-29) Anion Gap 16.1 mmol/L (8-16) Blood Urea Nitrogen 14 mg/dL (7-26) Creatinine 0.86 mg/dL (0.72-1.25) Estimat Glomerular Filtration Rate > 60 ML/MIN (60-) BUN/Creatinine Ratio 16 (6-25) Glucose Level 121 mg/dL (74-118) Calcium Level 9.7 mg/dL (8.4-10.2) Total Bilirubin 6.2 mg/dL (0.2-1.2) Aspartate Amino Transf (AST/SGOT) 191 IU/L (5-34) Alanine Aminotransferase (ALT/SGPT) 216 IU/L (0-55) Alkaline Phosphatase 594 IU/L (40-150) Creatine Kinase 52 IU/L (30-200) Total Protein 7.8 g/dL (6.5-8.1) Albumin 3.4 g/dL (3.5-5.0) Globulin 4.4 g/dL (2.3-3.5) Albumin/Globulin Ratio 0.8 (0.8-2.0) Laboratory Tests Test 06/22/19 18:29 White Blood Count 14.60 x10e3/uL (4.8-10.8) Red Blood Count 5.20 x10e6/uL (4.3-5.7) Hemoglobin 15.2 g/dL (14.0-18.0) Hematocrit 47.6 % (38.2-49.6) Mean Corpuscular Volume 91.5 fL (81-99) Mean Corpuscular Hemoglobin 29.2 pg (28-32) Mean Corpuscular Hemoglobin Concent 31.9 g/dL (31-35) Red Cell Distribution Width 15.9 % (11.7-14.4) Platelet Count 203 x10e3/uL (140-360) Neutrophils (%) (Auto) 84.3 % (38.7-80.0) Lymphocytes (%) (Auto) 7.8 % (18.0-39.1) Monocytes (%) (Auto) 6.2 % (4.4-11.3) Eosinophils (%) (Auto) 0.9 % (0.0-6.0) Basophils (%) (Auto) 0.4 % (0.0-1.0) Neutrophils # (Auto) 12.3 (2.1-6.9) Lymphocytes # (Auto) 1.1 (1.0-3.2) Monocytes # (Auto) 0.9 (0.2-0.8) Eosinophils # (Auto) 0.1 (0.0-0.4) Basophils # (Auto) 0.1 (0.0-0.1) Absolute Immature Granulocyte (auto 0.06 x10e3/uL (0-0.1) Prothrombin Time 12.6 seconds (11.9-14.5) Prothromb Time International Ratio 0.89 Activated Partial Thromboplast Time 27.6 seconds (23.8-35.5) Lab results reviewed: Yes Laboratory comments noted elevated wbc & lft's / elevated lactic (JOSE AMES NP) Imaging Impressions Procedure: [id number] DX/CHEST SINGLE (PORTABLE) Exam Date: 06/22/19 Exam Time: 1839 REPORT STATUS: Signed EXAMINATION: CHEST SINGLE (PORTABLE) INDICATION: Shortness of breath COMPARISON: None FINDINGS: AP view TUBES and LINES: None. LUNGS: Lungs are well inflated. Lungs are clear. There is no evidence of pneumonia or pulmonary edema. PLEURA: No pleural effusion or pneumothorax. HEART AND MEDIASTINUM: The cardiomediastinal silhouette is unremarkable. BONES AND SOFT TISSUES: No acute osseous lesion. Soft tissues are unremarkable. UPPER ABDOMEN: No free air under the diaphragm. Nonspecific elevation of the right hemidiaphragm. IMPRESSION: No acute thoracic radiographic abnormality. Nonspecific elevation of the right hemidiaphragm. 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 - Dr Granger in eval pt status - lab ekg cxr ordered Dr Granger spoke w/ Dr Ryan will admit and mrcp in am and consult Dr Whitfield discussed pt presentation / plan of care w/ Dr Whitfield 182 SIRS criteria met - hr 96 wbc 14.6 9 blood cultures / lactic / zosyn / ns bolus ordered 1952 lactic 3.8 2nd ns bolus ordered severe sepsis - source abd / elevated lft's prob gb prob- MRCP scan in progress Dr Whitfield in eval pt status discussed lab ekg cxr results plan of care and need for admit care of pt turned over to Dr Whitfield - 2nd lactic pending / MRCP results pe nding (JOSE AMES CONTINUOUS TOWEL ROLLER) Depart Disposition: ADMITTED Last Vital Signs Date Time Temp Pulse Resp B/P (MAP) Pulse Ox O2 Delivery O2 Flow Rate FiO2 06/22/19 18:21 98.8 91 16 190/99 98 (JOSE AMES CONTINUOUS TOWEL ROLLER) Home Meds Reported Medications Aspirin (ASPIRIN) 81 Mg Tab.chew, 81 MG PO DAILY 06/22/19 Mesalamine (APRISO) 0.375 Gm Cap.er.24h, 0.75 MG PO DAILY 06/22/19 Ciprofloxacin Hcl (CIPROFLOXACIN HCL) 500 Mg Tablet, 500 MG PO BID 06/22/19 Discontinued Reported Medications Atorvastatin Calcium (ATORVASTATIN CALCIUM) 20 Mg Tablet, 20 MG PO DAILY 06/22/19 Attestation Provider Attestation The patient's history, exam findings, diagnostics, and a summary of any interventions or procedures was reviewed in detail with our PADMAJA. I personally interviewed and examined the patient, and I have reviewed and agree with the HPI andexam. My personal exam shows [ epigsatric tenderness on exam, pt found to be septic with elevated lft's, wbc 14 heart rate greater than 90 and initial lactic acid of 3.8. second lactic acid after 1 liter ns bolus is 0.9. pt was started on zosyn 3.375 grams iv i spoke with dr warren, dr whitfield, and dr yu.]. I confirm the diagnosis as documented by the PADMAJA. I have reviewed and agree with the care plan articulated in the disposition section. (ASHUTOSH WHITFIELD MD) JOSE AMES NP June 22, 2019 18:34 ASHUTOSH WHITFIELD MD June 22, 2019 21:42
[2019-06-22 18:41] LABS: BASOPHILS # (AUTO) 0.1 (0.0-0.1); BASOPHILS % 0.4 % (0.0-1.0); EOSINOPHILS # (AUTO) 0.1 (0.0-0.4); EOSINOPHILS % 0.9 % (0.0-6.0); HEMATOCRIT 47.6 % (38.2-49.6); HEMOGLOBIN 15.2 g/dL (14.0-18.0); LYMPHOCYTES # (AUTO) 1.1 (1.0-3.2); LYMPHOCYTES % 7.8 % (18.0-39.1); MEAN CORPUSCULAR HEMOGLOBIN 29.2 pg (28-32); MEAN CORPUSCULAR HGB CONC 31.9 g/dL (31-35); MEAN CORPUSCULAR VOLUME 91.5 fL (81-99); MONOCYTES # (AUTO) 0.9 (0.2-0.8); MONOCYTES % 6.2 % (4.4-11.3); NEUTROPHILS # (AUTO) 12.3 (2.1-6.9); NEUTROPHILS % 84.3 % (38.7-80.0); PLATELET COUNT 203 x10e3/uL (140-360); RED CELL DISTRIBUTION WIDTH 15.9 % (11.7-14.4)
[2019-06-22 18:50] LABS: INR 0.89; PROTHROMBIN TIME 12.6 seconds (11.9-14.5)
[2019-06-22 18:51] LABS: PARTIAL THROMBOPLASTIN TIME 27.6 seconds (23.8-35.5)
[2019-06-22 18:57] LABS: ALANINE AMINOTRANSFERASE 216 IU/L (0-55); ALBUMIN 3.4 g/dL (3.5-5.0); ALBUMIN/GLOBULIN RATIO 0.8 (0.8-2.0); ALKALINE PHOSPHATASE 594 IU/L (40-150); ANION GAP 16.1 mmol/L (8-16); BLOOD UREA NITROGEN 14 mg/dL (7-26); BUN/CREATININE RATIO 16 (6-25); CALCIUM 9.7 mg/dL (8.4-10.2); CARBON DIOXIDE 24 mmol/L (22-29); CHLORIDE 103 mmol/L (98-107); CREATINE KINASE 52 IU/L (30-200); CREATININE, SERUM 0.86 mg/dL (0.72-1.25); EST GLOMERULAR FILTRATION RATE > 60 ML/MIN (60-); GLUCOSE 121 mg/dL (74-118); POTASSIUM 3.1 mmol/L (3.5-5.1); SODIUM 140 mmol/L (136-145)
[2019-06-22] MEDS ORDERED: PIPER-TAZ 3.375 GM 50 ML IV ONE (19:00)
[2019-06-22] MEDS ORDERED: SODIUM CHLORIDE 0.9% 1000ML 1,000 ML IV STA ×2 (19:08→19:52)
[2019-06-22] MEDS ORDERED: ONDANSETRON HCL INJ 2MG/ML 2ML 2 MG/ML VIAL IV PRN (19:30)
--- NOTE | 2019-06-22 20:00 | Diagnostic Imaging Report ---
EXAMINATION: CHEST SINGLE (PORTABLE) INDICATION: Shortness of breath COMPARISON: None FINDINGS: AP view TUBES and LINES: None. LUNGS: Lungs are well inflated. Lungs are clear. There is no evidence of pneumonia or pulmonary edema. PLEURA: No pleural effusion or pneumothorax. HEART AND MEDIASTINUM: The cardiomediastinal silhouette is unremarkable. BONES AND SOFT TISSUES: No acute osseous lesion. Soft tissues are unremarkable. UPPER ABDOMEN: No free air under the diaphragm. Nonspecific elevation of the right hemidiaphragm. IMPRESSION: No acute thoracic radiographic abnormality. Nonspecific elevation of the right hemidiaphragm. Signed by: Jerry Mcintosh MD on 06/22/2019 7:56 PM
--- NOTE | 2019-06-22 20:07 | NUR ---
URINE COLLECTED AND SENT OFF TO THE LAB
--- OUTSIDE RECORDS SUMMARY | 2019-06-22 20:12 | XMS REPORT | Continuity of Care Document ---
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 06/20/2019 [facility] Abdomen AP DX Exam: Abdominal x-ray, 1 [...] 1. Nonobstructive bowel gas pattern. 09/11/2018 [facility] [place] Ext Lower Venous Doppler Bilat US EXAM: [...] insufficiency is dem onstrated by reflux. 07/19/2018 [facility] Chest 2 views DX EXAM: XR CHES [...] identified. IMPRESSION: No acute cardiopulmonary abnormality. 07/12/2018 [facility] CT Low Dose Lung Screening Juan Jose [...] evaluation: None. Thank you for choosing the [facility] Lung Screening Program. 07/12/2018 [facility] Consultation Notes No Data Provided for This Section Discharge Summaries No Data Provided for This Section History and Physicals No Data Provided for This Section Vital Signs No Data Provided for This Section Encounters Location Location Details Encounter Type Encounter Number Reason For Visit Attending Provider ADM Date DC Date Status Source [facility] [place] [facility] [id number] Josse Ryan Jr 07/12/2018 07/13/2018 [facility] [place] [facility] [place] [facility] [id number] Josse Ryan Jr 07/19/2018 07/20/2018 [facility] [place] [facility] [place] [facility] [id number] Josse Ryan Jr 09/11/2018 09/12/2018 [facility] [place] [facility] [place] [facility] [id number] Josse Ryan Jr 06/20/2019 06/21/2019 [facility] [place] Procedures No Data Provided for This Section [...]
--- OUTSIDE RECORDS SUMMARY | 2019-06-22 20:12 | XMS REPORT ---
Author Author [facility] t Organization [facility] Address [address] [place] [address] Phone Unavailable Care Team Providers Care Stencil Sprayer Name Role Phone Anamika WHITFIELD Attphys Unavailable Ricardo Ryan Jr Attphys Esteban Souza Attphys Unavailable Amanda GLEASON Admphys Unavailable Payers Payer Name Policy Type Policy [...] Known Allergies DA Active U 2017-01-03 00:00:00 [facility] Medications This patient has no known medications. Procedures This patient has no known procedures. Encounters Start Date/Time End Date/Time Encounter Type Admission Type [facility] Care Department Encounter ID Source 2019-06-20 14:49:00 2019-06-20 23:59:00 Outpatient Josse Pool MHOIB MHOIB [id number] [facility] Out patient Imaging - [place] 2018-09-11 10:07:00 2018-09-11 23:59:00 Outpatient Josse Pool MHHOIP MHHOIP [id number] [facility] Out patient Imaging - [place] 2018-07-19 13:46:00 2018-07-19 23:59:00 Outpatient Josse Pool MHOIB MHOIB [id number] [facility] Out patient Imaging - [place] 2018-07-12 07:29:00 2018-07-12 23:59:00 Outpatient Josse Pool MHOIB MHOIB [id number] [facility] Out patient Imaging - [place] Results Test Description Test Time Test Comments Results Result Comments Source CHEST SINGLE (PORTABLE) 2019-06-22 19:56:00 [place] [address] Patient Name: RIGO MICHELE MR #: [id number] : 1950 Age/Sex: 69/M Req #: [id number] Adm Physician: Ordered by: JOSE AMES NP Report #: [id number] Location: ER Room/Bed: Procedure: [id number] DX/CHEST SINGLE (PORTABLE) Exam Date: 06/22/19 Exam Time: 1840 REPORT STATUS: Signed EXAMINATION: CHEST SINGLE (PORTABLE) INDICATION: Shortness of breath COMPARISON: None FINDINGS: AP view TUBES and LINES: None. LUNGS: Lungs are well inflated. Lungs are clear. There is no evidence of pneumonia or pulmonary edema. PLEURA: No pleural effusion or pneumothorax. HEART AND MEDIASTINUM: The cardiomediastinal silhouette is unremarkable. BONES AND SOFT TISSUES: No acute osseous lesion. Soft tissues are unremarkable. UPPER ABDOMEN: No free air under the diaphragm. Nonspecific elevation of the right hemidiaphragm. IMPRESSION: No acute thoracic radiographic abnormality. Nonspecific elevation of the right hemidiaphragm. Signed by: Anny Corbett MD on 06/22/2019 7:56 PM Dictated By: ANNY CORBETT MD 55 Transcribed By: CAROLYNE on 06/22/191955 COPY TO: KWAKUJOSE Alfredo ADJUNCT FACULTY HGB HCT 2018-08-31 06:50:00 Test Item HEMOGLOBIN (test code = HGB) 11.8 g/dL 12-16 L HEMATOCRIT (test code = HCT) 37.0 % 37-47 N HGB [id number] 05:46:00* Test Item Value Reference Range Interpretation Comments HEMOGLOBIN (test code = HGB) 11.3 g/dL 12-16 L HEMATOCRIT (test code = HCT) 36.2 % 37-47 L - XR SPINE 1 V SPEC [id number] 10:05:00 Patient Name: RIGO MICHELE JR Unit No: [id number] EXAMS: CPT CODE: [id number] XR SPINE 1 V SPEC LEVEL 10562 3 LATERAL INTRAOPERATIVE VIEWS OF THE LUMBAR [...] Technologist: MEE DAVID. RT(R) Transcribed D/ (1005) tSPENCER [facility] NAME: RIGO MICHELE JR [address] [facility] PHYS: Trung Ojeda MD : 1950 AGE: 68 SEX: M [place], [place] [address] LOC: Y.507 A PHONE #: [phone] EXAM DATE: 08/28/2018 STATUS: ADM IN FAX #: RAD #: D/C DT PAGE 1 Signed Report Patient Name: RIGO MICHELE JR Unit No: [id number] EXAMS: CPT CODE: [id number] XR SPINE 1 V SPEC LEVEL 67338 <Continued> Orig Print D/T: S: 08/29/2018 (1008) [facility] NAME: RIGO MICHELE JR [address] [facility] PHYS: Trung Ojeda MD : 1950 AGE: 68 SEX: M [place], [place] [address] LOC: Y.507 A PHONE #: [phone] EXAM DATE: 08/28/2018 STATUS: ADM IN FAX #: [phone] RAD #: D/C DT PAGE 2 Signed Report - XR SPINE 1 V SPEC [id number] 10:05:00 Patient Name: RIGO MICHELE JR Unit No: [id number] EXAMS: CPT CODE: [id number] XR SPINE 1 V SPEC LEVEL 45055 3 LATERAL INTRAOPERATIVE VIEWS OF THE LUMBAR [...] MEE DAVID. RT(R) Transcribed D/ (1005) Olegario [facility] NAME: RIGO MICHELE JR [address] [facility] PHYS: Trung Ojeda MD : 1950 AGE: 68 SEX: M [place], [place] [address] LOC: Y.507 A PHONE #: [phone] EXAM DATE: 08/28/2018 STATUS: ADM IN FAX #: RAD #: D/C DT PAGE 1 Signed Report Patient Name: RIGO MICHELE JR Unit No: [id number] EXAMS: CPT CODE: [id number] XR SPINE 1 V SPEC LEVEL 68493 <Continued> Orig Print D/T: S: 08/29/2018 (1008) [facility] NAME: RIGO MICHELE JR [address] [facility] PHYS: Trung Ojeda MD : 1950 AGE: 68 SEX: M [place], [place] [address] LOC: Y.507 A PHONE #: [phone] EXAM DATE: 08/28/2018 STATUS: ADM IN FAX #: [phone] RAD #: D/C DT PAGE 2 Signed Report - XR SPINE 1 V SPEC [id number] 10:05:00 Patient Name: RIGO MICHELE JR Unit No: [id number] EXAMS: CPT CODE: [id number] XR SPINE 1 V SPEC LEVEL 27164 3 LATERAL INTRAOPERATIVE VIEWS OF THE LUMBAR [...] Technologist: JUSTIN VILLAR RT(R) Transcribed D/ (1005) tCLAUDEJ [facility] NAME: RIGO MICHELE JR [address] [facility] PHYS: Trung Ojeda MD : 1950 AGE: 68 SEX: M [place], [place] [address] LOC: Y.507 A PHONE #: [phone] EXAM DATE: 08/28/2018 STATUS: ADM IN FAX #: RAD #: D/C DT PAGE 1 Signed Report Patient Name: RIGO MICHELE JR Unit No: [id number] EXAMS: CPT CODE: [id number] XR SPINE 1 V SPEC LEVEL 55481 <Continued> Orig Print D/T: S: 08/29/2018 (1008) [facility] NAME: RIGO MICHELE JR [address] [facility] PHYS: Trung Ojeda MD : 1950 AGE: 68 SEX: M [place], [place] [address] LOC: Y.507 A PHONE #: [phone] EXAM DATE: 08/28/2018 STATUS: ADM IN FAX #: [phone] RAD #: D/C DT PAGE 2 Signed Report [id number] 09:23:00* Test Item Value Reference Range Interpretation Comments GLUBED (test code = GLUBED) 169 mg/dL 60-125 H BASIC METABOLIC [id number] 06:28:00* Test Item Value Reference Range Interpretation [...] GFR) 77.2 >60 Unit of measure: mL/min/1.73 v9Zvdtyytfz Range:Healthy Adults >90 mL/min/1.73 m2 For Chronic Kidney Disease: Stage II Mild Decrease in GFR 60-90 Stage III Moderate Decrease in GFR 30-59 Stage IV Severe Decrease in GFR 15-29 Stage V Kidney Failure <15 CREATININE (test code = CREAT) 0.97 mg/dL 0.55-1.30 N CALCIUM (test code = CA) 7.8 mg/dL 8.2-10.1 L HGB [id number] 05:56:00* Test Item Value Reference Range Interpretation Comments HEMOGLOBIN (test code = HGB) 10.6 g/dL 12-16 L HEMATOCRIT (test code = HCT) 32.8 % 37-47 L PROTHROMBIN [id number] 11:53:00* Test Item Value Reference Range Interpretation [...] Patient is on Heparin Drip? NOTHROMBOPLASTIN TIME [id number] 11:53:00* Test Item Value Reference Range Interpretation [...] GFR) 73.7 >60 Unit of measure: mL/min/1.73 t1Thrqrvszq Range:Healthy Adults >90 mL/min/1.73 m2 For Chronic Kidney Disease: Stage II Mild Decrease in GFR 60-90 Stage III Moderate Decrease in GFR 30-59 Stage IV Severe Decrease in GFR 15-29 Stage V Kidney Failure <15 CREATININE (test code = CREAT) 1.01 mg/dL 0.55-1.30 N CALCIUM (test code = CA) 8.9 mg/dL 8.2-10.1 N CBC W/AUTO [id number] 10:10:00* Test Item Value Reference Range Interpretation [...] % 0-0 N - CT L-SPINE W/O [id number] 08:27:00 Patient Name: RIGO MICHELE Unit No: [id number] EXAMS: CPT CODE: [id number] CT L-SPINE W/O CONTRAST 96151 TECHNIQUE: Multiplanar CT images were obtained of [...] right L3-L4 interbody graft posteriorly, described above. [facility] NAME: RIGO MICHELE [address] PHYS: Trung Ojeda MD : 1950 AGE: 68 SEX: M [place], [place] [address] LOC: Y.RAD PHONE #: EXAM DATE: 08/05/2018 STATUS: DEP CLI FAX #: RAD #: D/C DT PAGE 1 Signed Report (CONTINUED) Patient Name: CLIVE MICHELE JR Unit No: [id number] EXAMS: CPT CODE: [id number] CT L-SPINE W/O CONTRAST 21848 <Continued> at 0827 Reported and signed by: Oleg Paredes M.D. CC: Trung Chino M.D. Technologist: Liset Bravo RT(R),(CT),RVT CTDI: DLP: Trnscrpt: 08/09/2018 (08) Olegario [facility] NAME: RIGO MICHELE JR [address] [facility] PHYS: Trung Ojeda MD : 1950 AGE: 68 SEX: M [place] [address] LOC: Y.RAD PHONE #: [phone] EXAM DATE: 08/05/2018 STATUS: DEP CLI FAX #: [phone] RAD #: D/C DT PAGE 2 Signed Report Patient Name: RIGO MICHELE JR Unit No: [id number] EXAMS: CPT CODE: [id number] CT L-SPINE W/O CONTRAST 12363 <Continued> Orig Print D/T: S: 08/09/2018 (0831) [facility] NAME: RIGO MICHELE JR [address] [facility] PHYS: Trung Ojeda MD : 1950 AGE: 68 SEX: M [place] [address] LOC: Y.RAD PHONE #: [phone] EXAM DATE: 08/05/2018 STATUS: DEP CLI FAX #: [phone] RAD #: D/C DT PAGE 3 Signed Report - MRI L-SPINE W/O [id number] 08:24:00 Patient Name: RIGO MICHELE JR Unit No: [id number] EXAMS: CPT CODE: [id number] MRI L-SPINE W/O CONT 64980 TECHNIQUE: Multiplanar, multisequence MRI examination performed of [...] right L3-L4 interbody graft posteriorly, described above. [facility] NAME: RIGO MICHELE [address] [facility] PHYS: Trung Ojeda MD : 1950 AGE: 68 SEX: [place], [place] [address] LOC: Y.MRI PHONE #: [phone] EXAM DATE: 08/07/2018 STATUS: DEP CLI FAX #: [phone] RAD #: D/C DT PAGE 1 Signed Report (CONTINUED) Patient Name: RIGO MICHELE JR Unit No: [id number] EXAMS: CPT CODE: [id number] MRI L-SPINE W/O CONT 02685 <Continued> at 0824 Reported and signed by: Oleg Paredes M.D. CC: Trung Chino M.D. Technologist: EMANUEL CLARKE. RT(R) Transcribed D/ (823) Olegario [facility] NAME: RIGO MICHELE JR [address] [facility] PHYS: Trung Ojeda MD : 1950 AGE: 68 SEX: M [place] [address] LOC: Y.MRI PHONE #: [phone] EXAM DATE: 08/07/2018 STATUS: DEP CLI FAX #: [phone] RAD #: D/C DT PAGE 2 Signed Report Patient Name: RIGO MICHELE JR Unit No: [id number] EXAMS: CPT CODE: [id number] MRI L-SPINE W/O CONT 64458 <Continued> Orig Print D/T: S: 08/09/2018 (827) [facility] NAME: RIGO MICHELE JR [address] [facility] PHYS: Trung Ojeda MD : 1950 AGE: 68 SEX: M [place] [address] LOC: Y.MRI PHONE #: [phone] EXAM DATE: 08/07/2018 STATUS: DEP CLI FAX #: [phone] RAD #: D/C DT PAGE 3 Signed Report HGB [id number] 06:26:00* Test Item Value Reference Range Interpretation Comments HEMOGLOBIN (test code = HGB) 10.4 g/dL 12-16 L HEMATOCRIT (test code = HCT) 31.7 % 37-47 L HGB [id number] 05:46:00* Test Item Value Reference Range Interpretation Comments HEMOGLOBIN (test code = HGB) 10.8 g/dL 12-16 L HEMATOCRIT (test code = HCT) 32.7 % 37-47 L BASIC METABOLIC [id number] 06:45:00* Test Item Value Reference Range Interpretation [...] GFR) 58.7 >60 Unit of measure: mL/min/1.73 f3Ulhidnxhp Range:Healthy Adults >90 mL/min/1.73 m2 For Chronic Kidney Disease: Stage II Mild Decrease in GFR 60-90 Stage III Moderate Decrease in GFR 30-59 Stage IV Severe Decrease in GFR 15-29 Stage V Kidney Failure <15 CREATININE (test code = CREAT) 1.23 mg/dL 0.55-1.30 N CALCIUM (test code = CA) 7.7 mg/dL 8.2-10.1 L HGB [id number] 05:44:00* Test Item Value Reference Range Interpretation Comments HEMOGLOBIN (test code = HGB) 11.7 g/dL 12-16 L HEMATOCRIT (test code = HCT) 35.1 % 37-47 L - XR SPINE 1 V SPEC [id number] 16:32:00 Patient Name: RIGO MICHELE Unit No: [id number] EXAMS: CPT CODE: [id number] XR SPINE 1 V SPEC LEVEL 97323 INTRAOPERATIVE LATERAL LUMBAR SPINE Film 1. Markers are posterior to L1 and the sacrum. Film 2. A surgical instrument is posterior to L2. Film 3. Anterior and posterior fusion has been performed from L2 to L4. at 1632 Reported and signed by: Trung Hartman MD CC: Trung Chino M.D. Technologist: BRICE LOPEZ (RT.R) Transcribed D/ (5762) Johnny [facility] NAME: RIGO MICHELE JR [address] [facility] PHYS: Trung Ojeda MD : 1950 AGE: 68 SEX: Jennifer [place], [place] [address] LOC: Y.998 11 PHONE #: [phone] EXAM DATE: 06/19/2018 STATUS: ADM IN FAX #: [phone] RAD #: D/C DT PAGE 1 Signed Report Patient Name: RIGO MICHELE JR Unit No: [id number] EXAMS: CPT CODE: [id number] XR SPINE 1 V SPEC LEVEL 20457 <Continued> Orig Print D/T: S: 06/19/2018 (9883) [facility] NAME: Yovani MICHELE JR [address] [facility] PHYS: Trung Garcia MD : 1950 AGE: 68 SEX: [place], [place] [address] LOC: Y. 998 11 PHONE #: [phone] EXAM DATE: 06/19/2018 STATUS: ADM IN FAX #: [phone] RAD #: D/C DT PAGE 2 Signed Report - XR SPINE 1 V SPEC [id number] 16:32:00 Patient Name: RIGO MICHELE JR Unit No: [id number] EXAMS: CPT CODE: [id number] XR SPINE 1 V SPEC LEVEL 39488 INTRAOPERATIVE LATERAL LUMBAR SPINE Film 1. Markers are posterior to L1 and the sacrum. Film 2. A surgical instrument is posterior to L2. Film 3. Anterior and posterior fusion has been performed from L2 to L4. at 1632 Reported and signed by: Trung Hartman MD CC: Trung Chino M.D. Technologist: BRICE LOPEZ (RT.R) Transcribed D/ (1292) Johnny [facility] NAME: RIGO MICHELE JR [address] [facility] PHYS: Trung Ojeda MD : 1950 AGE: 68 SEX: M [place], [place] [address] LOC: Y.998 11 PHONE #: [phone] EXAM DATE: 06/19/2018 STATUS: ADM IN FAX #: [phone] RAD #: D/C DT PAGE 1 Signed Report Patient Name: RIGO MICHELE JR Unit No: [id number] EXAMS: CPT CODE: [id number] XR SPINE 1 V SPEC LEVEL 08795 <Continued> Orig Print D/T: S: 06/19/2018 (952) [facility] NAME: Yovani MICHELE JR [address] [facility] PHYS: Trung Garcia MD : 1950 AGE: 68 SEX: [place], [place] [address] LOC: Y. PHONE #: [phone] EXAM DATE: 06/19/2018 STATUS: ADM IN FAX #: [phone] RAD #: D/C DT PAGE 2 Signed Report - XR SPINE 1 V SPEC [id number] 16:32:00 Patient Name: RIGO MICHELE JR Unit No: [id number] EXAMS: CPT CODE: [id number] XR SPINE 1 V SPEC LEVEL 50144 INTRAOPERATIVE LATERAL LUMBAR SPINE Film 1. Markers are posterior to L1 and the sacrum. Film 2. A surgical instrument is posterior to L2. Film 3. Anterior and posterior fusion has been performed from L2 to L4. at 1632 Reported and signed by: Trung Hartman MD CC: Trung Chino M.D. Technologist: BRICE LOPEZ (RT.R) Transcribed D/ (5400) Johnny [facility] NAME: RIGO MICHELE JR [address] [facility] PHYS: Trung Ojeda MD : 1950 AGE: 68 SEX: [place], [place] [address] LOC: Y.998 11 PHONE #: [phone] EXAM DATE: 06/19/2018 STATUS: ADM IN FAX #: [phone] RAD #: D/C DT PAGE 1 Signed Report Patient Name: RIGO MICHELE JR Unit No: [id number] EXAMS: CPT CODE: [id number] XR SPINE 1 V SPEC LEVEL 18344 <Continued> Orig Print D/T: S: 06/19/2018 (1635) [facility] NAME: Yovani MICHELE JR [address] [facility] PHYS: Trung Garcia MD : 1950 AGE: 68 SEX: M [place], [place] [address] LOC: Y. 998 11 PHONE #: [phone] EXAM DATE: 06/19/2018 STATUS: ADM IN FAX #: [phone] RAD #: D/C DT PAGE 2 Signed Report ACUTE HEPATITIS [id number] 21:14:00* Test Item Value Reference Range Interpretation [...] = HIV1AB) NONREACTIVE NONREACTIVE Done by [employer] Fanaticall[employer] 4th Gen HIV Ag/Ab Combo Screen ACUTE HEPATITIS [id number] 21:14:00* Test Item Value Reference Range Interpretation [...] AB HIV 1 2 (test code = IUO59RP) NONREACTIVE NONREACTIVE Done by [employer] Fanatic[employer] 4th Gen HIV Ag/Ab Combo Screen ACUTE HEPATITIS [id number] 20:39:00* Test Item Value Reference Range Interpretation [...] (test code = HIV1AB) NONREACTIVE ACUTE HEPATITIS [id number] 20:38:00* Test Item Value Reference Range Interpretation [...] AB HIV 1 2 (test code = CKO04GE) NONREACTIVE BASIC METABOLIC [id number] 17:36:00* Test Item Value Reference Range Interpretation [...] GFR) 71.2 >60 Unit of measure: mL/min/1.73 o1Llymhvxez Range:Healthy Adults >90 mL/min/1.73 m2 For Chronic Kidney Disease: Stage II Mild Decrease in GFR 60-90 Stage III Moderate Decrease in GFR 30-59 Stage IV Severe Decrease in GFR 15-29 Stage V Kidney Failure <15 CREATININE (test code = CREAT) 1.04 mg/dL 0.55-1.30 N CALCIUM (test code = CA) 8.8 mg/dL 8.2-10.1 N PROTHROMBIN [id number] 17:36:00* Test Item Value Reference Range Interpretation [...] intravascular valves IS PATIENT ON ANTICOAGULANTS ? NHas Lab been notified if Patient is on Heparin D rip? NOIf Yes, order CBC, OCCULT BLOOD, PT every other day NTHROMBOPLASTIN TIME [id number] 17:36:00* Test Item Value Reference Range Interpretation Comments PTT ACTIVATED (test code = APTT) 30.7 secs 24.9-37.0 N IS PATIENT ON ANTICOAGULANTS ? NMas Lab been notified if Patient is on [...] 0 % 0-0 N NM BONE SPECT [id number] 14:34:23CLINICAL INDICATION: M47.816 Spondylosis w/o myelopathy or [...] comments above.PQRS 147: 3570F- XR L-SPINE W/BEND [id number] 10:51:00 Patient Name: RIGO MICHELE JR Unit No: [id number] EXAMS: CPT CODE: [id number] XR L-SPINE W/BEND VIEW 79289 MRI OF THE LUMBAR SP INE: DIAGNOSIS: 1. At L1-2, disc desiccation. No ce ntral canal stenosis. Mild to moderate central canal stenosis. Mild bila teral facet arthropathy. Mild foraminal stenosis. 2. At L2- 3, moderate to marked disc degeneration. There is 2 mm retrolisthesis of L2 on L3. 2 mm disc bulge. Marked atpp-tu-jwba central canal stenosis se condary to thickening [...] of the partially vis ualized hip joints. [facility] NAME: CREWS,CLIVE THAKKAR JR [address] [facility] PHYS: Ruben Galvan MD : 1950 AGE: 68 SEX: M [place] [id number] LOC: Y.MRI PHONE #: [phone] EXAM DATE: 05/21/2018 STATUS: REG CLI FAX #: [phone] RAD #: D/C DT PAGE 1 Signed Report (CONTINUED) Hussein raynt Name: RIGO MICHELE JR Unit No: [id number] EXAMS: CPT CODE: [id number] XR L-SPINE W/BEND VIEW 13054 <Continued> at 1051 Reported and signed by: Quoc Oliveira MD CC: Ruben Ramirez MD Technologist: Bala Cortez(R) Transcribed D/ (7342) [facility] NAME: RIGO MICHELE JR [address] [facility] PHYS: Ruben Galvan MD : 1950 AGE: 68 SEX: M [place] [address] LOC: Y.MRI PHONE #: [phone] EXAM DATE: 05/21/2018 STATUS: REG CLI FAX #: [phone] RAD #: D/C DT PAGE 2 Signed Report Patient Name: RIGO MICHELE JR Unit No: [id number] EXAMS: CPT CODE: [id number] XR L-SPINE W/BEND VIEW 83408 <Continued> Orig Print D/T: S: 05/21/2018 (6614) [facility] NAME: RIGO MICHELE JR [address] [facility] PHYS: Ruben Galvan MD : 1950 AGE: 68 SEX: M [place] [id number] LOC: Y.MRI PHONE #: [phone] EXAM DATE: 05/21/2018 STATUS: REG CLI FAX #: [phone] RAD #: D/C DT PAGE 3 Signed Report - MRI L-SPINE W/O [id number] 10:51:00 Patient Name: RIGO MICHELE JR Unit No: [id number] EXAMS: CPT CODE: [id number] MRI L-SPINE W/O CONT 93804 MRI OF THE LUMBAR SPINE: DIAGNOSIS: 1. At L1-2, disc desiccation. No central canal stenosis. Mild to moderate central canal stenosis. Mild bilateral facet arthropathy. Mild foraminal stenosis. 2. At L2-3, moderate to marked disc degeneration. There is 2 mm retrolisthesis of L2 on L3. 2 mm disc bulge. Marked fcoi-tu-rocg central canal stenosis secondary to thickening of [...] of the partially vis ualized hip joints. [facility] NAME: CLIVE MICHELE JR [address] [facility] PHYS: Ruben Galvan MD : 1950 AGE: 68 SEX: M [place] [address] LOC: Y.MRI PHONE #: [phone] EXAM DATE: 05/21/2018 STATUS: REG CLI FAX #: [phone] RAD #: D/C DT PAGE 1 Signed Report (CONTINUED) Hussein corynt Name: RIGO MICHELE JR Unit No: [id number] EXAMS: CPT CODE: [id number] MRI L-SPINE W/O CONT 74216 <Continued> at 1051 Reported and signed by: Quoc Oliveira MD CC: Ruben Ramirez MD Technologist: Bala Cortez(R) Transcribed D/ (6223) [facility] NAME: RIGO MICHELE JR [address] [facility] PHYS: Ruben Galvan MD : 1950 AGE: 68 SEX: M [place] [address] LOC: Y.MRI PHONE #: [phone] EXAM DATE: 05/21/2018 STATUS: REG CLI FAX #: [phone] RAD #: D/C DT PAGE 2 Signed Report Patient Name: RIGO MICHELE JR Unit No: [id number] EXAMS: CPT CODE: [id number] MRI L-SPINE W/O CONT 72016 <Continued> Orig Print D/T: S: 05/21/2018 (8574) [facility] NAME: RIGO MICHELE JR [address] [facility] PHYS: Ruben Galvan MD : 1950 AGE: 68 SEX: M [place] [address] LOC: Y.MRI PHONE #: [phone] EXAM DATE: 05/21/2018 STATUS: REG CLI FAX #: [phone] RAD #: D/C DT PAGE 3 Signed Report - XR FLUORO FOR SPINE [id number] 09:37:00 Patient Name: RIGO MICHELE JR Unit No: [id number] EXAMS: CPT CODE: [id number] XR FLUORO FOR SPINE INJ 91977 LUMBAR FACET AND EPIRADICULAR INJECTIONS REFERRAL PHYSICIAN: [...] taken to the PACU in good condition. [facility] NAME: RIGO MICHELE JR [address] [facility] PHYS: Ruben Galvan MD [place] [address] : 1950 AGE: 68 SEX: M LOC: [place] PHONE #: [phone] EXAM DATE : 04/26/2018 STATUS: [facility] FAX #: [phone] RAD #: D/C DT PAGE 1 Signed Report (CONTINUED) Patient Name: RIGO MICHELE JR Unit No: [id number] EXAMS: CPT CODE: [id number] XR FLUORO FOR SPINE INJ 14865 < Continued> at 0937 Reported and signed by: Ruben Ramirez M.D. CC: Ruben Ramirez MD Technologist: FELICITA MELENDEZ(R) Transcribed D/ (0937) Trena [facility] NAME: RIGO MICHELE JR [address] [facility] PHYS: Ruben Galvan MD [place] [address] : 1950 AGE: 68 SEX: M LOC: [place] PHONE #: [phone] EXAM DATE: 04/26/2018 STATUS: [facility] FAX #: [phone] RAD #: D/C DT PAGE 2 Signed Report Patient Name: RIGO MICHELE JR Unit No: [id number] EXAMS: CPT CODE: [id number] XR FLUORO FOR SPINE INJ 66287 <Continued> Orig Print D/T: S: 04/28/2018 (0940) [facility] NAME: RIGO MICHELE JR [address] [facility] PHYS: Ruben Galvan MD [place] [address] : 1950 AGE: 68 SEX: M LOC: [place] PHONE #: [phone] EXAM DATE: 04/26/2018 STATUS: DEP [facility] FAX #: [phone] RAD #: D/C DT PAGE 3 Signed Report NM BONE SPECT SCAN CLINICAL INDICATION: dx: m51.36, m51.16, m96.1, lumbarspine abnormality, chron ic lower back and left knee pain, left ankle and left wrist fx beforeMODALITY: [employer] dual head gamma cameraTECHNIQUE: 25 mCi Tc [...] INDICATION: M51.36 Other intervertebral disc degeneration, lumbar lpfzdhY99.1 Postlaminectomy syndrome, not elsewhere [id number]: [employer] [place] 1.2 [place] Open MRI TECHNIQUE: [...] None.Seven views of lumbar spine were obtained.Five [id number] lumbar-type vertebral bodies are evident. Mild lumbar [...]
[2019-06-22 20:33] LABS: CLARITY,URINE SL CLOUDY (CLEAR); COLOR,URINE BROWN (YELLOW)
[2019-06-22 20:34] LABS: BILIRUBIN,URINE LARGE (NEGATIVE); KETONES,URINE NEGATIVE (NEGATIVE); LEUKOCYTE ESTERASE ,URINE NEGATIVE (NEGATIVE); NITRITE,URINE NEGATIVE (NEGATIVE); PROTEIN,URINE DIPSTICK 1+ (NEGATIVE)
[2019-06-22 20:39] LABS: RBC,URINE 0-5 /HPF (0-5); WBC,URINE (MAN) 0-5 /HPF (0-5)
[2019-06-22 20:40] LABS: BACTERIA,URINE RARE /HPF; CALCIUM OXALATE CRYSTALS,UR FEW (FEW); EPITHELIAL CELLS,URINE RARE /LPF; MUCUS,URINE FEW (RARE)
[2019-06-22] MEDS: MORPHINE SULFATE 2 MG/ML SYR 1ML IV PRN (20:41)
[2019-06-22 22:00] VITALS: BP 134/75
[2019-06-22] MEDS ORDERED: PIPER-TAZ 3.375 GM / NS 50ML IV SCH (22:00)
--- NOTE | 2019-06-22 22:00 | NUR ---
PATIENT IS A NEW ADMIT THAT ARRIVED VIA STRETCHER. PATIENT HAS BEEN TRANSFERRED INTO THE BED. BED IS IN THE LOWEST POSITION AND CALL LIGHT IS WITHIN REACH. WILL CONTINUE TO MONITOR PATIENT. DENIES PAIN OR DISCOMFORT.
[2019-06-22 22:18] VITALS: BP 134/75
[2019-06-22] MEDS ORDERED: SODIUM CHLORIDE 0.9% 250ML 250 ML ONE (22:51)
[2019-06-22 22:58] VITALS: BP 134/75
[2019-06-22] MEDS: METRONIDAZOLE 500MG/NS 100ML 100 ML IV SCH (23:07)
[2019-06-23] VITALS (7 sets, daily range): BP systolic 99–134; BP diastolic 65–85
[2019-06-23] MEDS: PIPER-TAZ 3.375 GM / NS 50ML IV SCH ×4 (04:05→22:27)
[2019-06-23 05:49] LABS: BASOPHILS # (AUTO) 0.1 (0.0-0.1); BASOPHILS % 0.4 % (0.0-1.0); EOSINOPHILS % 0.4 % (0.0-6.0); HEMATOCRIT 38.9 % (38.2-49.6); HEMOGLOBIN 12.6 g/dL (14.0-18.0); LYMPHOCYTES # (AUTO) 0.9 (1.0-3.2); MEAN CORPUSCULAR HEMOGLOBIN 29.7 pg (28-32); MEAN CORPUSCULAR HGB CONC 32.4 g/dL (31-35); MEAN CORPUSCULAR VOLUME 91.7 fL (81-99); MONOCYTES # (AUTO) 0.6 (0.2-0.8); MONOCYTES % 5.4 % (4.4-11.3); NEUTROPHILS # (AUTO) 9.7 (2.1-6.9); NEUTROPHILS % 85.5 % (38.7-80.0); PLATELET COUNT 157 x10e3/uL (140-360); RED BLOOD COUNT 4.24 x10e6/uL (4.3-5.7); RED CELL DISTRIBUTION WIDTH 15.9 % (11.7-14.4)
[2019-06-23] MEDS: METRONIDAZOLE 500MG/NS 100ML 100 ML IV SCH ×3 (06:11→18:06)
[2019-06-23 06:12] LABS: ALANINE AMINOTRANSFERASE 171 IU/L (0-55); ALBUMIN 2.6 g/dL (3.5-5.0); ALBUMIN/GLOBULIN RATIO 0.8 (0.8-2.0); ALKALINE PHOSPHATASE 403 IU/L (40-150); AMYLASE 59 U/L (25-125); ANION GAP 12.8 mmol/L (8-16); BLOOD UREA NITROGEN 14 mg/dL (7-26); BUN/CREATININE RATIO 18 (6-25); CALCIUM 8.4 mg/dL (8.4-10.2); CARBON DIOXIDE 22 mmol/L (22-29); CHLORIDE 108 mmol/L (98-107); EST GLOMERULAR FILTRATION RATE > 60 ML/MIN (60-); GLUCOSE 123 mg/dL (74-118); LIPASE 67 U/L (8-78); POTASSIUM 3.8 mmol/L (3.5-5.1); SODIUM 139 mmol/L (136-145)
[2019-06-23 06:24] LABS: CREATINE KINASE 77 IU/L (30-200)
--- NOTE | 2019-06-23 06:39 | NUR ---
patient is resting comfortably in the bed. no distress noted. bed is in lowest position.
--- NOTE | 2019-06-23 07:38 | Consultation ---
DATE OF CONSULTATION: 06/23/2019 REFERRING PHYSICIAN: Josse Ryan MD HISTORY OF PRESENT ILLNESS: The patient is a 69-year-old male presents to the emergency room with complaints of severe epigastric abdominal pain. The patient says the pain started yesterday. He has associated nausea. He has had similar pains before, but never this severe. Evaluation in the emergency room revealed jaundice with elevated bilirubin of 6. He was sent for MRCP, results of which are not available at this time. The patient at this time says his pain is nearly gone. PAST MEDICAL HISTORY: Significant for multiple previous back surgeries and neck surgery. He denies any chronic medical problems although chart says he has hyperlipidemia. MEDICATIONS: At home aspirin, Cipro, and mesalamine. ALLERGIES: HE HAS NO KNOWN ALLERGIES. FAMILY HISTORY: Noncontributory. SOCIAL HISTORY: The patient does not smoke cigarettes or drink alcohol. REVIEW OF SYSTEMS: As stated above. He has not had any fever. PHYSICAL EXAMINATION: GENERAL: The patient is awake and alert, in no distress. VITAL SIGNS: At this time are normal. HEENT: Sclera slightly icteric. NECK: No masses. LUNGS: Equal breath sounds are clear bilaterally. CARDIAC: Regular rate and rhythm with no murmur. ABDOMEN: Soft. There was no tenderness, no mass, no organomegaly. EXTREMITIES: No edema. NEUROLOGIC: Grossly intact. LABORATORY DATA: White blood count on arrival was 14.6, but today is 11.4, hemoglobin and hematocrit are normal. Chemistries reveal abnormal liver function tests with elevated bilirubin, which was 6.2 on admission, now 5.7. AST, ALT, and alkaline phosphatase were also elevated while the lipase was normal. ASSESSMENT: A 69-year-old male with epigastric abdominal pain, findings suggestive of biliary colic, possible cholangitis, which is now improved. Plan to review the MRCP. At this point recommend keeping the patient on IV antibiotics has been ordered. There are no signs of peritonitis, no findings that would warrant immediate surgical intervention at this time. Thank you for asking me to see Mr. Hedrick. MD DENYS Farrar/VERITO /[id number]
[2019-06-23] MEDS: DEXTROSE 5%/0.45% SOD CHL 1,000 ML IV SCH (10:35)
[2019-06-23 11:46] LABS: CREATINE KINASE 81 IU/L (30-200)
--- NOTE | 2019-06-23 14:31 | Consultation ---
DATE OF CONSULTATION: Cardiac Consultation REASON FOR CONSULTATION: Cardiac clearance, chest pain. HISTORY OF PRESENT ILLNESS: Mr. Hedrick is a 69-year-old gentleman, who is known to be smoker. The patient was in his usual status of health. He started having shortness of breath, lower retrosternal epigastric discomfort, nausea, and vomiting. He was not feeling well at all. His lab data was consistent with marked elevation of bilirubin and transaminase. Because of this finding and the possible need of the patient's surgery, cardiac consultation is obtained. Cardiac-jackman, the patient denied having any angina, however, his activities are very very much limited. In fact, the patient had back surgery and cervical surgery, and he walks with a walker. There is no orthopnea. There is no paroxysmal nocturnal dyspnea. There is no active cardiovascular system complaint. REVIEW OF SYSTEMS: GENERAL: No fever. No chills. HEENT: No vision problem. No hearing problem. PULMONARY AND CARDIAC: As per above. GI: Nausea, vomiting, abdominal discomfort, and abdominal pain. : No hematuria. No dysuria. MUSCULOSKELETAL: Back pain, knee pain. NEUROLOGIC: Abnormal gait secondary to back problem. HEMATOLOGY: No easy bruising or bleeding. ENDOCRINE: No history of diabetes mellitus. PAST MEDICAL HISTORY: 1. Left knee replacement. 2. Low back surgery. 3. Cervical spine surgery. 4. Heavy smoker. SOCIAL HISTORY: He is a smoker. Social alcohol drinker. 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 . HOME MEDICATIONS: Include mesalamine, aspirin, Lipitor, which was stopped. ALLERGIES: NONE LISTED. FAMILY HISTORY: Both father and mother with hypertensive, but no premature coronary artery disease. All siblings and children are without premature coronary artery disease. PHYSICAL EXAMINATION: GENERAL: Well-built gentleman, in no acute distress. VITAL SIGNS: Height of 5 feet 10 inches, weight 170 pounds, blood pressure 100/60, heart rate of 60, and respiratory rate of 20. HEENT: Jaundice is noted. NECK: No elevation of jugular venous pulsation. No bruit. CHEST: Clear to auscultation and percussion. HEART: PMI 5th left intercostal space. Normal first and second heart sound. ABDOMEN: Soft with good bowel sounds. EXTREMITIES: No cyanosis. No clubbing. No edema. NEUROLOGIC: Nonfocal. LABORATORY DATA: Chest x-ray showed no volume overload. EKG showing normal sinus rhythm, nonspecific ST changes. White blood cell count of 11.3, hemoglobin 12.6, and hematocrit 39%. Electrolytes were normal. ALT and AST are elevated. Bilirubin is elevated. IMPRESSION AND PLAN: 1. Admission with gastrointestinal symptoms and jaundice. 2. Smoker. 3. Possible chronic obstructive pulmonary disease. 4. Very severe advanced degenerative joint disease, status post several surgeries and abnormal gait. 5. Dyspnea on exertion, multifactorial. Cardiac jackman, the patient will be cleared for the surgery if surgery is needed. His cardiac risks are acceptable and the surgery is needed. Regardless, we will leave that decision for the MRCP and further GI workup, which is in progress. From a cardiac point of view, we will get an echocardiogram. We will follow the patient's progression with you. I would like to thank you for your kind referral. MD DUANE Orr/VERITO /[id number]
--- NOTE | 2019-06-23 17:51 | NUR ---
patient up in bed, alert with no distress, Dr Bush had rounds
--- NOTE | 2019-06-23 18:02 | Diagnostic Imaging Report ---
EXAM: Magnetic Resonance Cholangiopancreatography (M.R.C.P.) INDICATION: Elevated bilirubin COMPARISON: None. TECHNIQUE: Multiplanar, multisequence MRCP was performed, with sequences including coronal turbo spin-echo T1-weighted scans, [facility] MRCP scans, coronal spin, coronal MPR 2[facility], [facility] MRCP AYALA. IV Contrast: None Oral Contrast: None Medications: None COMPLICATIONS: None FINDINGS: LOWER THORAX: Unremarkable. HEPATOBILIARY: No focal hepatic lesion. Mild to moderate intrahepatic and extrahepatic biliary ductal dilatation. The common bile duct measures up to 1.5 cm in caliber. There is a 0.9 cm round hypointense lesion at the ampulla of Vater (best seen on series 5 image 38, series 9 image 21). GALLBLADDER: Distended. No wall thickening. No discrete intraluminal stone. No pericholecystic inflammation. SPLEEN: No splenomegaly. PANCREAS: No discrete pancreatic mass lesion is identified. The pancreatic duct is not dilated. ADRENALS: No adrenal nodules KIDNEYS/URETERS: No hydronephrosis. Bilateral parapelvic cysts. GI TRACT: No abnormal distention, wall thickening, or evidence of bowel obstruction. LYMPH NODES: No definite lymphadenopathy. VESSELS: Unremarkable. PERITONEUM / RETROPERITONEUM: No free air or fluid. BONES: Unremarkable. SOFT TISSUES: Unremarkable. IMPRESSION: 1. Mild to moderate intrahepatic and extrahepatic biliary duct dilatation. A 0.9 cm lesion at the ampulla of Vater may represent a stone or other obstructing lesion. Gastroenterology consultation for consideration of ERCP is recommended. 2. Distended gallbladder without discrete intraluminal gallstone. 3. No discrete pancreatic mass lesion or ductal dilatation within the sensitivity limits of this examination. Signed by: Jerry Mcintosh MD on 06/22/2019 9:18 PM
[2019-06-23] MEDS: MORPHINE SULFATE 2 MG/ML SYR 1ML IV PRN (19:39)
--- NOTE | 2019-06-23 23:26 | NUR ---
SPOKE TO MD SHER REGARDING PATIENT REQUEST OF NICOTINE PATCH. RECEIVED NEW ORDERS.
[2019-06-23] MEDS ORDERED: NICOTINE 14 MG/EA PATCH TOP PRN (23:30)
[2019-06-24] VITALS (8 sets, daily range): BP systolic 91–134; BP diastolic 53–77
[2019-06-24] MEDS: DEXTROSE 5%/0.45% SOD CHL 1,000 ML IV SCH ×3 (00:18→22:00)
[2019-06-24] MEDS: METRONIDAZOLE 500MG/NS 100ML 100 ML IV SCH ×5 (00:18→23:35)
--- NOTE | 2019-06-24 01:10 | NUR ---
RECHECKED B/P . ASYMPTOMATIC.
--- NOTE | 2019-06-24 02:16 | NUR ---
SPOKE TO MD LANCASETR REGARDING B/P 91/53. ASYMPTOMATIC. NO NEW ORDERS RECEIVED.
[2019-06-24] MEDS: PIPER-TAZ 3.375 GM / NS 50ML IV SCH ×3 (05:40→22:00)
[2019-06-24 05:49] LABS: BASOPHILS # (AUTO) 0.1 (0.0-0.1); BASOPHILS % 0.7 % (0.0-1.0); EOSINOPHILS # (AUTO) 0.1 (0.0-0.4); EOSINOPHILS % 1.6 % (0.0-6.0); HEMATOCRIT 38.1 % (38.2-49.6); HEMOGLOBIN 12.3 g/dL (14.0-18.0); LYMPHOCYTES # (AUTO) 1.1 (1.0-3.2); LYMPHOCYTES % 12.3 % (18.0-39.1); MEAN CORPUSCULAR HEMOGLOBIN 29.6 pg (28-32); MEAN CORPUSCULAR HGB CONC 32.3 g/dL (31-35); MEAN CORPUSCULAR VOLUME 91.6 fL (81-99); MONOCYTES # (AUTO) 0.6 (0.2-0.8); MONOCYTES % 6.2 % (4.4-11.3); NEUTROPHILS # (AUTO) 7.1 (2.1-6.9); PLATELET COUNT 158 x10e3/uL (140-360); RED BLOOD COUNT 4.16 x10e6/uL (4.3-5.7); RED CELL DISTRIBUTION WIDTH 15.8 % (11.7-14.4)
[2019-06-24 06:18] LABS: ALANINE AMINOTRANSFERASE 153 IU/L (0-55); ALBUMIN 2.5 g/dL (3.5-5.0); ALBUMIN/GLOBULIN RATIO 0.8 (0.8-2.0); ALKALINE PHOSPHATASE 353 IU/L (40-150); ANION GAP 11.4 mmol/L (8-16); BLOOD UREA NITROGEN 10 mg/dL (7-26); BUN/CREATININE RATIO 12 (6-25); CALCIUM 8.4 mg/dL (8.4-10.2); CARBON DIOXIDE 24 mmol/L (22-29); CHLORIDE 108 mmol/L (98-107); CREATININE, SERUM 0.81 mg/dL (0.72-1.25); EST GLOMERULAR FILTRATION RATE > 60 ML/MIN (60-); GLUCOSE 107 mg/dL (74-118); POTASSIUM 3.4 mmol/L (3.5-5.1); SODIUM 140 mmol/L (136-145)
--- NOTE | 2019-06-24 07:04 | NUR ---
REPORT GIVEN TO [facility]. AAOX3. NO SIGNS OF IV INFILTRATION. RESTING IN BED. BED LOCKED AND IN LOW POSITION. CALL LIGHT WITHIN REACH.
[2019-06-24] MEDS ORDERED: POTASSIUM CHLORIDE 20MEQ/100ML 100 ML IV ONE (10:15)
--- NOTE | 2019-06-24 11:41 | NUR ---
Patient off the unit for ERCP, STABLE, at bed side
[2019-06-24] MEDS ORDERED: IOPAMIDOL 300MG/ML 50ML INFUS..BTL IV ONE (11:43)
[2019-06-24] MEDS ORDERED: INDOMETHACIN 50 MG SUPP.RECT RC ONE (11:43)
[2019-06-24] MEDS ORDERED: GLUCAGON FOR INJ 1 MG VIAL ONE (12:21)
--- NOTE | 2019-06-24 14:35 | NUR ---
Recvd pt from ERCP. AAOx3, Not in any distress, denies any pain or SOB this time, keep monitoring, on IV fluids. at bed side
[2019-06-24] MEDS ORDERED: ONDANSETRON HCL INJ 2MG/ML 2ML 2 MG/ML VIAL ONE (18:13)
[2019-06-24] MEDS ORDERED: DEXAMETHASONE SOD PHOS INJ 4 MG/ML VIAL ONE (18:13)
[2019-06-24] MEDS ORDERED: GLYCOPYRROLATE INJ 0.2 MG/ML VIAL ONE (18:13)
[2019-06-24] MEDS ORDERED: ROCURONIUM BROMIDE 10 MG/ML 5ML VIAL IV ONE (18:13)
[2019-06-24] MEDS ORDERED: SEVOFLURANE INHAL SOLN 250 ML PEN BTL ONE (18:13)
[2019-06-24] MEDS ORDERED: ETOMIDATE 2 MG/ML 10 ML INJ IV ONE (18:13)
[2019-06-24] MEDS ORDERED: LIDOCAINE HCL 2% LOCAL INJ 5 ML SDV VIAL INJ ONE (18:13)
[2019-06-24] MEDS ORDERED: NEOSTIGMINE 1 MG/ML 10ML VIAL ONE (18:13)
[2019-06-24] MEDS ORDERED: FENTANYL CITRATE/PF 100MCG/2 ML INJ ONE (18:42)
[2019-06-24] MEDS ORDERED: MIDAZOLAM HCL 2 MG/2 ML VIAL ONE (18:42)
--- NOTE | 2019-06-24 20:53 | NUR ---
AMBULATED IN EDUARDO. STANDBY ASSIST PROVIDED. STEADY GAIT NOTED WITH WALKER.
[2019-06-24 21:55] LABS: ALBUMIN 2.6 g/dL (3.5-5.0); BILIRUBIN,DIRECT 5.8 mg/dL (0.0-0.5)
[2019-06-25] VITALS (7 sets, daily range): BP systolic 103–111; BP diastolic 62–69
[2019-06-25] MEDS: PIPER-TAZ 3.375 GM / NS 50ML IV SCH ×3 (05:39→22:00)
[2019-06-25 06:05] LABS: BASOPHILS % 0.1 % (0.0-1.0); HEMATOCRIT 37.7 % (38.2-49.6); HEMOGLOBIN 11.9 g/dL (14.0-18.0); LYMPHOCYTES # (AUTO) 0.6 (1.0-3.2); LYMPHOCYTES % 8.5 % (18.0-39.1); MEAN CORPUSCULAR HEMOGLOBIN 28.9 pg (28-32); MEAN CORPUSCULAR HGB CONC 31.6 g/dL (31-35); MEAN CORPUSCULAR VOLUME 91.5 fL (81-99); MONOCYTES # (AUTO) 0.3 (0.2-0.8); MONOCYTES % 4.6 % (4.4-11.3); NEUTROPHILS # (AUTO) 5.8 (2.1-6.9); NEUTROPHILS % 86.5 % (38.7-80.0); PLATELET COUNT 154 x10e3/uL (140-360); RED BLOOD COUNT 4.12 x10e6/uL (4.3-5.7); RED CELL DISTRIBUTION WIDTH 15.9 % (11.7-14.4)
[2019-06-25 06:19] LABS: ALANINE AMINOTRANSFERASE 133 IU/L (0-55); ALBUMIN 2.5 g/dL (3.5-5.0); ALBUMIN/GLOBULIN RATIO 0.8 (0.8-2.0); ALKALINE PHOSPHATASE 305 IU/L (40-150); ANION GAP 14.2 mmol/L (8-16); BLOOD UREA NITROGEN 13 mg/dL (7-26); BUN/CREATININE RATIO 16 (6-25); CALCIUM 8.6 mg/dL (8.4-10.2); CARBON DIOXIDE 22 mmol/L (22-29); CHLORIDE 108 mmol/L (98-107); CREATININE, SERUM 0.83 mg/dL (0.72-1.25); EST GLOMERULAR FILTRATION RATE > 60 ML/MIN (60-); GLUCOSE 141 mg/dL (74-118); POTASSIUM 4.2 mmol/L (3.5-5.1); SODIUM 140 mmol/L (136-145)
[2019-06-25] MEDS: METRONIDAZOLE 500MG/NS 100ML 100 ML IV SCH ×4 (06:27→23:57)
--- NOTE | 2019-06-25 06:45 | NUR ---
RECEIVED BEDSIDE SHIFT REPORT FROM OFF GOING NURSE. PATIENT IS RESTING IN BED. DENIES PAIN OR DISCOMFORT. CALL LIGHT WITHIN REACH. BED IN THE LOWEST POSITION.
--- NOTE | 2019-06-25 07:13 | NUR ---
REPORT GIVEN TO [facility] NURSE. AAOX3. RESTING IN BED. NO SIGNS OF IV INFILTRATION. BED LOCKED AND IN LOW POSITION. CALL LIGHT WITHIN REACH.
--- NOTE | 2019-06-25 10:10 | NUR ---
Pt. expressed no spiritual or emotional concerns at this time. Clerk Secretary provided hospitality and information on how to reach signal wirer, if needed. No need to follow at this time. SOFI PRIETO Clerk Secretary Spiritual Care Department O: [phone]
--- NOTE | 2019-06-25 13:52 | Diagnostic Imaging Report ---
ADDENDUM #1 Because of the technical reasons, the stones cannot be precisely measured on the store monitor fluoroscopic images. Using the endoscope as a reference, one of these stones is approximately 3 mm across and the other is approximately 4-5 mm across. If there is a clinical concern about obstructive biliary ductal calculi, an ultrasound or MRCP may be performed. Signed by: Irseal Rodriguez MD on 06/26/2019 2:11 PM ORIGINAL REPORT Fluoroscopy during ERCP Technique: Fluoroscopic service was used during the performance of the ERCP. A radiologist was not present during this exam. Interpretation has been requested. Findings: Multiple images reveal the balloon sweep for the common hepatic/common bile duct with multiple stones downstream from the occlusive balloon. The final image reveals presence of at least 2 stones in the distal CBD. Impression: Retained stones in the distal CBD post ERCP stone extraction as described above. Signed by: Isreal Rodriguez MD on 06/25/2019 1:48 PM
[2019-06-25] MEDS: DEXTROSE 5%/0.45% SOD CHL 1,000 ML IV SCH (15:32)
--- NOTE | 2019-06-25 19:00 | NUR ---
Patient visited in room during nursing rounds. Patient alert and oriented x3. Ambulatory in room prn. Pt denies any pain or discomfort at this time. On IVF (D51/2NS at 20ml/hr). Pt on Full liquid diet and stated he has eaten 90% of his meals today. Pt on scheduled IV antibiotic treatments. Call nagel within reach. Will monitor pt closely.
--- NOTE | 2019-06-25 19:09 | NUR ---
BEDSIDE SHIFT REPORT GIVEN TO ONCOMING NURSE. PATIENT IS IN STABLE CONDITION, NO ACUTE DISTRESS NOTED. CALL LIGHT WITHIN REACH. BED IN THE LOWEST POSITION.
[2019-06-26] VITALS (8 sets, daily range): BP systolic 112–125; BP diastolic 64–88
[2019-06-26] MEDS: PIPER-TAZ 3.375 GM / NS 50ML IV SCH ×3 (05:30→22:00)
[2019-06-26] MEDS: METRONIDAZOLE 500MG/NS 100ML 100 ML IV SCH ×4 (06:15→23:24)
[2019-06-26 06:34] LABS: BASOPHILS % 0.6 % (0.0-1.0); EOSINOPHILS % 0.5 % (0.0-6.0); HEMATOCRIT 37.5 % (38.2-49.6); LYMPHOCYTES # (AUTO) 1.7 (1.0-3.2); LYMPHOCYTES % 26.1 % (18.0-39.1); MEAN CORPUSCULAR HEMOGLOBIN 29.4 pg (28-32); MEAN CORPUSCULAR VOLUME 91.9 fL (81-99); MONOCYTES # (AUTO) 0.3 (0.2-0.8); MONOCYTES % 5.1 % (4.4-11.3); NEUTROPHILS # (AUTO) 4.4 (2.1-6.9); NEUTROPHILS % 67.4 % (38.7-80.0); PLATELET COUNT 163 x10e3/uL (140-360); RED BLOOD COUNT 4.08 x10e6/uL (4.3-5.7)
--- NOTE | 2019-06-26 06:42 | NUR ---
Received bedside shift report from off going nurse. Patient is resting in bed, no acute distress noted. Call light within reach. Bed in the lowest position.
[2019-06-26 06:57] LABS: ALANINE AMINOTRANSFERASE 127 IU/L (0-55); ALBUMIN 2.6 g/dL (3.5-5.0); ALBUMIN/GLOBULIN RATIO 0.8 (0.8-2.0); ALKALINE PHOSPHATASE 291 IU/L (40-150); ANION GAP 13.5 mmol/L (8-16); BLOOD UREA NITROGEN 10 mg/dL (7-26); BUN/CREATININE RATIO 12 (6-25); CALCIUM 8.4 mg/dL (8.4-10.2); CARBON DIOXIDE 23 mmol/L (22-29); CHLORIDE 110 mmol/L (98-107); CREATININE, SERUM 0.86 mg/dL (0.72-1.25); EST GLOMERULAR FILTRATION RATE > 60 ML/MIN (60-); GLUCOSE 86 mg/dL (74-118); POTASSIUM 3.5 mmol/L (3.5-5.1); SODIUM 143 mmol/L (136-145)
--- NOTE | 2019-06-26 18:50 | NUR ---
BEDSIDE SHIFT REPORT GIVEN TO ONCOMING NURSE. PATIENT IS IN STABLE CONDITION, NO ACUTE DISTRESS NOTED AT THIS TIME, PATIENT SITTING IN CHAIR. CALL LIGHT WITHIN REACH. BED IN THE LOWEST POSITION.
--- NOTE | 2019-06-26 19:00 | NUR ---
Patient visited in room during nursing rounds. Patient alert and oriented x3. Ambulatory in room with rolling walker prn. Patient denies any pain or discomfort. Pt states he has been tolerating well the GI soft diet. Call nagel within reach. Will monitor closely.
[2019-06-27 01:07] VITALS: BP 130/84
[2019-06-27] MEDS: PIPER-TAZ 3.375 GM / NS 50ML IV SCH (05:15)
[2019-06-27 05:26] VITALS: BP 125/76
[2019-06-27] MEDS: METRONIDAZOLE 500MG/NS 100ML 100 ML IV SCH ×2 (06:20→11:30)
[2019-06-27 06:40] LABS: ALANINE AMINOTRANSFERASE 114 IU/L (0-55); ALBUMIN 2.6 g/dL (3.5-5.0); ALBUMIN/GLOBULIN RATIO 0.8 (0.8-2.0); ALKALINE PHOSPHATASE 266 IU/L (40-150); ANION GAP 12.5 mmol/L (8-16); CARBON DIOXIDE 23 mmol/L (22-29); CHLORIDE 109 mmol/L (98-107); CREATININE, SERUM 0.88 mg/dL (0.72-1.25); EST GLOMERULAR FILTRATION RATE > 60 ML/MIN (60-); GLUCOSE 86 mg/dL (74-118); POTASSIUM 3.5 mmol/L (3.5-5.1); SODIUM 141 mmol/L (136-145)
--- NOTE | 2019-06-27 06:46 | NUR ---
RECEIVED BEDSIDE SHIFT REPORT FROM OFF GOING NURSE. PATIENT IS RESTING IN BED, NO S/S OF DISTRESS NOTED. CALL LIGHT WITHIN REACH. BED IN THE LOWEST POSITION.
[2019-06-27 06:54] LABS: BLOOD UREA NITROGEN 11 mg/dL (7-26); BUN/CREATININE RATIO 13 (6-25)
[2019-06-27 08:00] VITALS: BP_SYST 110; BP_SYST 124; BP_DIAS 53; BP_DIAS 70
[2019-06-27 09:03] VITALS: BP 124/70
[2019-06-27 11:59] VITALS: BP 122/70
--- NOTE | 2019-06-27 14:55 | NUR ---
Received discharge order from Dr. Ryan. Patient is in stable condition. IV line to right hand discontinued with tip intact, pressure applied to site, no bleeding noted. Discharge teaching provided to patient and , they both verbalized understanding. Discharge folder with DC paperwork on hand. All personal items on hand. Patient accompanied to private auto via wheelchair by staff.
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
--- NOTE | 2019-07-02 09:04 | Operative Report ---
DATE OF PROCEDURE: 06/24/2019 SURGEON: Garret Melendez MD PROCEDURES: ERCP with the ERS, balloon sweeps and brushings. INDICATION FOR PROCEDURES: Obstructive jaundice. MEDICATIONS: The patient was done under general endotracheal anesthesia. PROCEDURE IN DETAIL: With the patient in the prone position, and after adequate induction of general endotracheal anesthesia, a flexible fiberoptic side-viewing Olympus scope was advanced into the esophagus all the way to the second portion of the duodenum. The ampulla appeared to be within normal limits. It was cannulated with ease and a cholangiogram was carried out revealing some filling defects in the distal common bile duct. ERS was then done, but the ampulla itself felt stiff and was hard to cut through, but a good cuff was achieved. Balloon sweeps x2 was carried out with removal of some debris. Brushings were then obtained of the distal CBD and the ampulla. A size 10/5 biliary stent was then inserted and documented in good position fluoroscopically. However, unfortunately it was dislodged when the scope was withdrawn. No attempt was carried out to reinsert the stent. Good drainage was witnessed from the common bile duct. The scope was subsequently withdrawn. The patient tolerated the procedure well. Await cytology results. The patient might benefit from an EUS. Garret Melendez MD [facility]/MODL /[id number] cc: Josse Ryan MD
== END 2019-06-27 14:55 | disposition home or self-care (01) | DRG 445 ==
LOC: ER 18:20 → ERHOLD 20:08 → MED/SURG3 22:01
PROVIDERS: ADMIT Internal Medicine; ATTEND Internal Medicine
PROC: 0F798DZ Dilation of Common Bile Duct with Intraluminal Device, Via Natural or Artificial Opening Endoscopic (ICD-10-PCS; 2019-06-24)
PROC: BF101ZZ Fluoroscopy of Bile Ducts using Low Osmolar Contrast (ICD-10-PCS; 2019-06-24)
PROC: 0FD98ZX Extraction of Common Bile Duct, Via Natural or Artificial Opening Endoscopic, Diagnostic (ICD-10-PCS; principal; 2019-06-24 13:30)
DX: K83.1 Obstruction of bile duct (principal); K83.09 Other cholangitis; J44.9 Chronic obstructive pulmonary disease, unspecified; R06.00 Dyspnea, unspecified; M19.90 Unspecified osteoarthritis, unspecified site; F17.200 Nicotine dependence, unspecified, uncomplicated; E87.6 Hypokalemia; Z96.652 Presence of left artificial knee joint; M17.12 Unilateral primary osteoarthritis, left knee; R26.9 Unspecified abnormalities of gait and mobility
CPT/HCPCS: 36415; 43260; 71045; 74181; 74328; 80053; 80076; 81001; 82150; 82550; 82553; 83036; 83605; 83690; 83880; 84484; 85025; 85610; 85730; 86301; 87040; 87635; 88104; 88112; 88305; 93005; 93306; 99284; J1100; J1610; J2001; J2250; J2270; J2405; J2543; J2710; J3010; J3480; J7030; J7050